=== PATIENT | male | born 1990 | race Caucasian/White ===

== ENCOUNTER 2022-11-04 13:16 | Emergency (ER) | payer MEDICAID, SELFPAY ==
[2022-11-04 13:21] VITALS: BP 118/77; PULSE 84; RESP 17; O2SAT 98
--- NOTE | 2022-11-04 13:31 | NUR.NOTE ---
Addendum entered by Deborah Godoy RN 11/04/22 13:38: AxOx4, walked from wheelchair to stretcher. continues to not allow assessment or vitals taken. Original Note: Nursing Note: pt states you are not going to get any cooperation out of me pt will not answer any questions, pt will not allow monitor to be placed on him.
--- NOTE | 2022-11-04 13:45 | ED.GENADUL_ITS ---
Discharge Plan Disposition Patient Disposition: Home Condition: Stable Discharge Details Clinical Impression: Opiate abuse, episodic Primary Care Provider: Shakira Gunderson ED Provider: Kellie Parekh Home Meds and New Rx's Prescriptions: Continued buprenorphine-naloxone [Suboxone] 1 EACH film 8 mg Sublingual DAILY Discharge Instructions Additional Instructions: You are declining any treatment at this time and are alert and oriented You may have rebound of symptoms and may need additional doses of Narcan, at this time you are medically cleared for incarceration Discharge Data Discharge Date/Time-TO BE ENTERED AT DEPARTURE: 11/04/22 16:32 Medical Decision Making Patient is alert and oriented with stable vital signs, he gives me the finger when I walk in the room and asked what brings him in and tells me to [id number] off When asked what brings him to the emergency department he tells me that he does not want to talk to me . Correctional facility guards state that he has been alert and oriented and was able to answer all basic questions in the triage box After 2 mg of Narcan, patient is alert, argumentative, and disinterested in speaking to this facility His vitals are stable he is maintaining airway, and he is ambulatory with steady gait, he is refusing additional evaluation at this time and stable for discharge back to the correctional facility, they are made aware that he may have rebound, they do have a health center at the facility and feel comfortable caring for this patient I suspect his alteration in mental status was secondary to opiate induced delirium secondary axonal overdose He will be discharged to the correctional facility in the care of correctional guards HPI General Date/Time Provider Initiated Documentation: 11/04/22 13:45 . HPI Narrative: This 32-year-old male presents after being arrested on a warrant and is running into the bathroom to take fentanyl and cocaine. He was found to be nodding off at the correctional facility when he was sent here for evaluation. He was evaluated in triage and nursing gave him Narcan secondary to likely opiate accidental overdose and reported complete resolution of symptoms. Patient is refusing to speak to me and unable to obtain history from the patient. Correctional facility guards are giving history. Related Data Home Medications Medication Instructions Recorded Confirmed buprenorphine 8 mg-naloxone 2 mg 8 mg sublingual DAILY 05/19/14 11/04/22 sublingual film (Suboxone) Allergies Allergy/AdvReac Type Severity Reaction Status Date / Time codeine Allergy Unverified 11/04/22 13:28 General Stated Complaint: GenMedical UDAY: 4 PFSH All Active Problems (Updated 11/04/22 @ 13:48 by PERLITA Coleman) Opiate abuse, episodic (Acute) Social History Smoking/Tobacco Use Status: Never Smoking risk assessment performed?: Yes Details: pt will not answer questions, see nursing note Course Vital Signs Vital signs: Vital Signs Pulse 84 11/04/22 13:21 Respiratory Rate 17 11/04/22 13:21 Blood Pressure 118/77 11/04/22 13:21 Pulse Oximetry 98 11/04/22 13:21 Pulse 84 11/04/22 13:21 Respiratory Rate 17 11/04/22 13:21 Respiratory Effort Normal, Non-Labored 11/04/22 13:33 Blood Pressure 118/77 11/04/22 13:21 Pulse Oximetry 98 11/04/22 13:21 Oxygen Delivery Method Room Air 11/04/22 13:21 Oxygen Flow Rate 0 11/04/22 13:21 Pain Level 0 11/04/22 13:21
--- NOTE | 2022-11-04 13:52 | NUR.NOTE ---
Nursing Note: Pt refused to sign discharge paperwork. Discharged from ER at 1350 in custody of correctional officers.
== END 2022-11-04 16:32 | disposition home or self-care (01) ==
PROVIDERS: Emergency Provider Physician Assistant
DX: F11.10 Opioid abuse, uncomplicated (principal)
CPT/HCPCS: 99283; 99284; J2310

== ENCOUNTER 2024-10-13 13:51 | Inpatient (IN) | payer MEDICAID, SELFPAY ==
[2024-10-13 13:54] VITALS: BP 142/89; PULSE 108; RESP 20; TEMP 37; O2SAT 94
[2024-10-13 13:56] VITALS: BP 142/89; PULSE 108; RESP 20; TEMP 37; O2SAT 94
--- NOTE | 2024-10-13 14:21 | W.ED.GENAD ---
Discharge Plan Disposition Patient Disposition: Admit to [facility] Condition: Stable Discharge Details Chief Complaint: Cellulitis Clinical Impression: Cellulitis of left groin Admit Date/Time: 10/13/24 17:48 Admit Provider: Tay Stanton Attending Provider: Tay Stanton Primary Care Provider: Alec Truong ED Provider: Thomas Díaz [facility] General Mode of arrival: ambulatory. Date/Time Provider Initiated Documentation: 10/13/24 13:52. Limitations to Documentation: no limitations. Information obtained by: patient. History of Present Illness 34 year old M presents to the emergency department with the chief complaint of left groin redness and drainage, described as moderate, Quality is described as aching, Patient started experiencing this day(s) (2) and it has been constant. No relieving factors improve symptom(s), No exacerbating factors reported . Patient notes no other symptoms.. Patient did receive the following treatments prior to arrival, none Related Data Home Medications ?Medication ?Instructions ?Recorded ?Confirmed methadone 10 mg tablet 150 mg PO DAILY 10/13/24 10/13/24 mirtazapine 15 mg tablet 15 mg PO QHS 10/13/24 10/13/24 Allergies Allergy/AdvReac Type Severity Reaction Status Date / Time codeine Allergy Unverified 11/04/22 13:28 General Stated Complaint: Cellulitis UDAY: 3 Review of Systems All systems reviewed & are unremarkable except as noted in HPI and below Constitutional Constitutional: Denies chills, Denies fever(s) and Denies weakness Eyes Eyes: Denies loss of vision ENT Ears, Nose, Mouth, and Throat: Denies change in voice Cardiovascular Cardiovascular: Denies chest pain and Denies dyspnea Respiratory Respiratory: Denies cough and Denies dyspnea Gastrointestinal Gastrointestinal: Denies abdominal pain, Denies nausea and Denies vomiting Integumentary/Breasts Skin/Breast: Reports rash Neurologic Neurologic: Denies loss of vision and Denies weakness Exam Const General: no acute distress Orientation: alert HENND Head: normal to inspection Ears: external ears normal General nose exam: external nose normal Mouth: moist mucous membranes Eyes General: appearance normal, both eyes and all related structures Neck Neck: normal visual inspection Resp Effort & Inspection: normal respiratory effort and able to speak in complete sentences Cardio Rate: regular rate GI Palpation: soft and not rigid Skin General skin exam: no rashes or lesions noted Neuro General: patient alert and patient oriented x3 Extrem General: normal to inspection Psych Mental Status: mental status grossly normal Course Vital Signs Vital signs: Vital Signs Temperature 37.0 C 10/13/24 13:54 Pulse 108 H 10/13/24 13:54 Respiratory Rate 20 10/13/24 13:54 Blood Pressure 142/89 H 10/13/24 13:54 Pulse Oximetry 94 10/13/24 13:54 Temperature 37.0 C 10/13/24 13:56 Pulse 108 H 10/13/24 13:56 Respiratory Rate 20 10/13/24 13:56 Blood Pressure 142/89 H 10/13/24 13:56 Pulse Oximetry 94 10/13/24 13:56 Lab/Test Results Lab/Test Results: 10/13/24 14:18 Blood Blood Culture - Pending 10/13/24 14:18 Blood Blood Culture - Pending Medical Decision Making 34-year-old male comes in with several days of worsening redness and swelling in the left groin region. He says that he had drainage of this area as well. He denies any fevers or systemic symptoms. He is stable on arrival. He has erythema in the left groin and fluctuance in the mid left groin with some purulent material mildly draining. His abdomen otherwise has no tenderness, he has no tenderness in the scrotum or meatus. I suspect cellulitis and abscess, will proceed with CBC, CMP, inflammatory markers, lactate and procalcitonin and also obtain a CT abdomen pelvis to evaluat for abscess Patient with a white count of 15, CT shows no visible abscess but does have extensive cellulitis. Given the extent of cellulitis will discuss with hospitalist about admission. Vancomycin ordered. Quality:SDOH Health Related Social Needs: No Data to Display [facility] All Active Problems (Updated 10/13/24 @ 18:56 by Thomas Díaz MD) DVT prophylaxis (Acute) Anemia (Chronic) Cellulitis of left groin (Acute) Sepsis (Acute) Medical History (Updated 10/13/24 @ 18:56 by Thomas Díaz MD) Obesity, Class III, BMI 40-49.9 (morbid obesity) IVDU (intravenous drug user) in remission Opioid dependence Surgical History (Updated 10/13/24 @ 17:56 by Tay Stanton) S/P appendectomy Family History (Updated 10/13/24 @ 17:57 by Tay Stanton) Other Heart disease Substance use disorder Social History (Updated 10/13/24 @ 17:57 by Tay Stanton) Smoking/Tobacco Use Status: Former Tobacco Use Smoking risk assessment performed?: Yes Alcohol Intake: former Substance use type: former substance user, heroin, opiates and IV drugs Housing: other Additional Social history: From [facility], incarcerated since 2022 No IVDU since 2014
[2024-10-13 15:05] LABS: Lactate 0.8 mmol/L (<or=2.0)
[2024-10-13 15:13] LABS: Abs Immature Grans 0.06 10^3/uL (0.0-0.06); Absolute Lymphocyte Count 1.46 10^3/uL (1.2-3.4); Absolute Monocyte Count 1.46 10^3/uL (0.1-0.8); Basophils % 0.3 %; Eosinophils % 1.4 %; HCT 34.2 % (40.0-50.0); HGB 11.1 g/dL (13.5-17.5); Immature Grans % 0.4 %; Lymphocytes % 9.5 %; MCH 26.7 pg (27.0-33.0); MCHC 32.5 % (32.0-36.0); MCV 82 fL (80-95); Monocytes % 9.5 %; Neutrophils % 78.9 %; RBC 4.16 10^6/uL (4.36-5.78); RDW-SD 39.2 fL; WBC 15.34 10^3/uL (4.4-10.8)
[2024-10-13 15:15] LABS: Bilirubin Negative (Negative); Blood Negative (Negative); Clarity Clear (Clear); Glucose Negative (Negative); Ketones Negative (Negative); Leukocyte Esterase Negative (Negative); Nitrite Negative (Negative); Urobilinogen 0.2 mg/dL (Up to 0.2)
[2024-10-13 15:16] LABS: Absolute Basophil Count 0.05 10^3/uL (0.0-0.2); Absolute Eosinophil Count 0.21 10^3/uL (0.0-0.7)
[2024-10-13 15:25] LABS: ALT 19 U/L (16-63); AST 20 U/L (15-37); Albumin 3.2 g/dL (3.4-5.0); Alkaline Phosphatase 110 U/L (46-116); Anion Gap 6.4 mmol/L (3-11); BUN 8 mg/dL (7-18); Bilirubin, Total 0.6 mg/dL (0.2-1.0); C-Reactive Protein 12.19 mg/dL (<or=0.5); CO2 29.6 mmol/L (21.0-32.0); Calcium 9.1 mg/dL (8.5-10.1); Chloride 100 mmol/L (98-107); Estimated GFR 101.92 (mL/min/1.73m2); Glucose 102 mg/dL (74-106); Magnesium 1.8 mg/dL (1.8-2.4); Potassium 4.3 mmol/L (3.5-5.1); Sodium 136 mmol/L (136-145)
--- NOTE | 2024-10-13 15:30 | DI.CT_ITS ---
Exam(s) CT ABDOMEN PELVIS W EXAM: CT ABDOMEN PELVIS W CLINICAL HISTORY: left groin redness, ?abscess. TECHNIQUE: Imaging Protocol: Axial computed tomography images with coronal and sagittal reformatted images were created and reviewed CONTRAST MATERIAL: Intravenous: Omnipaque-350 100cc Oral: None COMPARISON: No exams were available for comparison FINDINGS: VISUALIZED LUNG BASES: No nodules nor pleural effusions evident. ABDOMEN: There is no ascites. LIVER: There are no focal hepatic lesions evident. No dilated intrahepatic ducts. GALLBLADDER/BILIARY: Gallbladder is contracted and difficult to evaluate. There does not appear to b e acute gallbladder pathology. CBD is not dilated. PANCREAS: No evidence of pancreatic mass nor dilatation of the pancreatic duct. SPLEEN: Spleen is not enlarged. No obvious intrasplenic lesions. Splenic and portal veins are paten t. ADRENALS: There are no significant adrenal masses. KIDNEYS:No cysts evident. No solid renal masses. No calculi nor hydronephrosis.. ABDOMINAL AORTA: Abdominal aorta is not enlarged. LYMPH NODES:There is no retroperitoneal nor paraaortic adenopathy. ABDOMINAL WALL: No evidence of significant anterior abdominal wall nor inguinal hernia. GI: There is no evidence of bowel obstruction, free air, nor abscess. PELVIS: GI: Appendix is surgically absent.No evidence of sigmoid diverticulitis. there is abundant abnormal streaking in the subcutaneous fat of the left groin and left hemiscro violeta with slight overlying skin thickening consistent with cellulitis and no discernible fluid collect ion. this streaking extends into the upper medial thigh. there is no gas in the soft tissues eviden t. there few slightly prominent left groin lymph nodes. LYMPH NODES: There is no intrapelvic nor inguinal adenopathy. REPRODUCTIVE: Prostate is small. Seminal vesicles unremarkable. URINARY BLADDER: No calculi nor obvious masses evident OSSEOUS: No fractures and no significant osseous lesions. There are bilateral pars defects at L5 level with mild anterolisthesis of L5 upon S1. IMPRESSION: 1. The main findings are in the left groin region where there is a large area of subcutaneous inflamm atory streaking with overlying skin thickening-probable cellulitis involving the groin and upper medi al left thigh and left hemiscrotum. There is no drainable fluid collection in this region and there is no gas in the soft tissues. 2. Other findings as above Report called to the ER physician by myself 10/13/2024 at 4 p.m. RADIATION DOSE DELIVERED: 1,108.29mGy.cm Total DLP DATA REPOSITORY: All CT scans at this facility are submitted to the National Radiology Data Registry (NRDR) Dose Index Registry (DIR) with the [employer] (A[employer]). RADIATION OPTIMIZATION: All CT scans at this facility use at least one of these dose optimization te chniques: automated exposure control; mA and/or kV adjustment per patient size (includes targeted exa ms where dose is matched to clinical indication); or iterative reconstruction.
[2024-10-13] MEDS: Normal Saline - Diluent 50 ML VIAL IJ (15:31)
[2024-10-13] MEDS: Omnipaque 350 MG/ML 100 ML BTL IJ (15:32)
[2024-10-13 15:44] LABS: Procalcitonin < 0.10 ng/mL
[2024-10-13 15:49] LABS: ESR 58 mm/hr (0-15)
[2024-10-13] MEDS: VANCOMYCIN/WATER (PEG) 2 GM/400 ML BAG IVPB (16:38)
--- NOTE | 2024-10-13 17:54 | HPE_ITS ---
Date of service: 10/13/24 Time of Service: 17:54 Assessment and Plan Assessment and plan (1) Sepsis: Status: Acute Assessment and plan: Meets criteria with elevated HR and WBC in setting of acute infection He hasn't gotten fluids, start with liter bolus On vancomycin for purlulent cellulitis with blood cx pending. (2) Cellulitis of left groin: Status: Acute Assessment and plan: Vancmycin as above. Given sepsis and severity of infeciton admission for IV abx indicated. CT does not reveal abscess to drain, continue to monitor for development. Consult surgery prn Draining some from small pocket, culture this fluid. (3) Opioid dependence: Assessment and plan: States he is on methadone, med rec says buprenorphine. We need to clarify this. (4) Anemia: Status: Chronic Assessment and plan: In setting of acute infection. Mild. Monitor. (5) DVT prophylaxis: Status: Acute Assessment and plan: enoxaparin. high dose given BMI >40. History of Present Illness History of Present Illness Chief Complaint: groin infection Narrative: 34 yo M with opioid use disorder, remote h/o IVDU, [facility] days of progressive pain, redness, and swelling in left groin. Started 3 days ago with a little pimple. Has grown and now skin is hard and tender above penis, swelling into penis makes it a little difficult and uncomfortable to urinate. Today, he started feeling chills and malaise. Has not started on antibiotics. He was treated for infected tooth with amox/clav and metronidazole finishing a week ago, had tooth pulled. His mouth is no longer bothering him. In the ED he had CT that did not show abscess. He was started on vancomycin. He is hungry now. No nausea or vomiting. no penile discharge. Review of Systems All systems reviewed & are unremarkable except as noted in HPI and below PFSH All Active Problems DVT prophylaxis (Acute) Anemia (Chronic) Cellulitis of left groin (Acute) Sepsis (Acute) Medical History Obesity, Class III, BMI 40-49.9 (morbid obesity) IVDU (intravenous drug user) in remission Opioid dependence Surgical History S/P appendectomy Family History Other Heart disease Substance use disorder Social History Smoking/Tobacco Use Status: Former Tobacco Use Smoking risk assessment performed?: Yes Alcohol Intake: former Substance use type: former substance user, heroin, opiates and IV drugs Housing: other Additional Social history: From [facility], incarcerated since 2022 No IVDU since 2014 Meds Allergies and Home Medications Allergies Allergy/AdvReac Type Severity Reaction Status Date / Time codeine Allergy Unverified 11/04/22 13:28 Home Medications ?Medication ?Instructions ?Recorded ?Confirmed ?Type methadone 10 mg tablet 150 mg PO DAILY 10/13/24 10/13/24 History mirtazapine 15 mg tablet 15 mg PO QHS 10/13/24 10/13/24 History Exam Narrative Exam Narrative: GEN: Alert and oriented x 4, pleasant and cooperative, gives linear history. Obese. No acute distress at rest. HEENT: Head atraumatic. Conjunctiva clear, no icterus. PEERL, EOMI. no rhinorrhea. MMM, OP benign with no swelling. Neck is supple with no masses or lymphadenopathy, trachea midline LUNGS: CTAB with normal effort CV: RRR with no murmurs, gallops, or rubs. ABD: active bowel sounds, soft, nontender and nondistended. No masses. : Left groin redness into upper thight and scrotum to inguinal fold. Mons pubis indurated and tender with small amount of drainage form area of head with pressure. Edema noted into the left scrotum and foreskin. Penis otherwise appears normal with no discharge. EXT: no cyanosis, clubbing. 1+ fay ankle edema, not tender. MSK: No joint redness or swelling. No CVAT NEURO: CN 2-12 grossly intact. Normal movement of 4 extremities. Normal speech and coordination. No tremor SKIN: No rashes or open wounds other than per . PSYCH: normal mood and affect, nl thought process Results Imaging CT scan - pelvis: report reviewed Imaging Studies: CT A/P: 1. The main findings are in the left groin region where there is a large area of subcutaneous inflammatory streaking with overlying skin thickening-probable cellulitis involving the groin and upper medial left thigh and left hemiscrotum. There is no drainable fluid collection in this region and there is no gas in the soft tissues. Labs 10/13/24 14:50 10/13/24 14:50 Labs: Laboratory Results - last 24 hr 10/13/24 10/13/24 10/13/24 14:50 15:07 15:43 WBC 15.34 H RBC 4.16 L Hgb 11.1 L Hct 34.2 L MCV 82 MCH 26.7 L MCHC 32.5 RDW 13.0 Plt Count MPV Immature Gran % 0.4 Neutrophils % 78.9 Lymphocytes % 9.5 Monocytes % 9.5 Eosinophils % 1.4 Basophils % 0.3 Nucleated RBC % 0.0 Absolute Neutrophils 12.10 H Absolute Lymphocytes 1.46 Absolute Monocytes 1.46 H Absolute Eosinophils 0.21 Absolute Basophils 0.05 ESR Cancelled 58 H VBG Lactate 0.8 Sodium 136 Potassium 4.3 Chloride 100 Carbon Dioxide 29.6 Anion Gap 6.4 BUN 8 Creatinine 1.0 Est GFR (CKD-EPI 2020) 101.92 Glucose 102 Calcium 9.1 Magnesium 1.8 Total Bilirubin 0.6 AST 20 ALT 19 Alkaline Phosphatase 110 C-Reactive Protein 12.19 H Total Protein 8.0 Albumin 3.2 L Procalcitonin < 0.10 Urine Color Yellow Urine Clarity Clear Urine pH 7.0 Ur Specific [place] 1.010 Urine Protein Negative Urine Ketones Negative Urine Blood Negative Urine Nitrite Negative Urine Bilirubin Negative Urine Urobilinogen 0.2 Ur Leukocyte Esterase Negative Urine Glucose Negative Last Vital Signs Temp 37.0 C 10/13/24 13:56 Pulse 108 H 10/13/24 13:56 Resp 20 10/13/24 13:56 BP 142/89 H 10/13/24 13:56 Pulse Ox 94 10/13/24 13:56 Time Spent Time spent with Patient: 55-74 minutes Time was spent: preparing to see the patient(eg.review tests), obtaining and/or reviewing separately otained hiistory, ordering medications,tests, procedures, referring, communicating with other health out of school hours care worker, indepentently interpreting results, counseling the patient and care coordination
--- NOTE | 2024-10-13 17:59 | W.PC.ACHO ---
Registration Status: Primary Language: Preferred Language: ED Information & Data Chief Complaint Cellulitis 10/13/24 14:24 Triage Note Patient complaining of 10/13/24 13:54 redness, swollen penis and testicles for 3 days Medical / Surgical History (Last Updated 10/13/24 @ 17:55 by Tay Stanton) Obesity, Class III, BMI 40-49.9 (morbid obesity) IVDU (intravenous drug user) Opioid dependence (Last Updated 10/13/24 @ 17:56 by Tay Stanton) S/P appendectomy Most Recent Vital Signs Temperature 37.0 C 10/13/24 13:56 Pulse 108 H 10/13/24 13:56 Respiratory Rate 20 10/13/24 13:56 Blood Pressure 142/89 H 10/13/24 13:56 Pulse Oximetry 94 10/13/24 13:56 Allergies codeine Allergy (Unverified 11/04/22 13:28) Active Medications Generic Name Dose Route Start Last Admin Trade Name Freq PRN Reason Stop Dose Admin Vancomycin/PEG/NADA/Lysine/Water 2 gm in 400 mls @ 200 mls/hr 10/13/24 16:15 10/13/24 16:38 Vancocin Injection IVPB 10/13/24 18:14 200 mls/hr NOW ONE Administration Iohexol 100 ml 10/13/24 15:45 10/13/24 15:32 Omnipaque 350 Mg/Ml 100 Ml Btl IJ 11/12/24 23:59 100 ml DIRECTED HELGA Administration Sodium Chloride 50 ml 10/13/24 15:45 10/13/24 15:31 Normal Saline - Diluent 50 Ml Vial IJ 50 ml .FOR DI USE HELGA Administration IV IV Catheter Type [Right Saline Lock Antecubital] IV Catheter Gauge [Right 18 Antecubital] Diet Orders Category Date Time Status Regular/Normal [DIET] Nutrition 10/13/24 Dinner Active Diagnostics 10/13/24 10/13/24 10/13/24 Range/Units 15:43 15:07 14:50 WBC 15.34 H (4.4-10.8) 10^3/uL RBC 4.16 L (4.36-5.78) 10^6/uL Hgb 11.1 L (13.5-17.5) g/dL Hct 34.2 L (40.0-50.0) % MCV 82 (80-95) fL MCH 26.7 L (27.0-33.0) pg MCHC 32.5 (32.0-36.0) % RDW 13.0 (11.8-14.1) % Plt Count (130-400) 10^3/uL MPV (8.0-11.0) fL Immature Gran % 0.4 % Neutrophils % 78.9 % Lymphocytes % 9.5 % Monocytes % 9.5 % Eosinophils % 1.4 % Basophils % 0.3 % Nucleated RBC % 0.0 (0.0-0.3) % Absolute Neutrophils 12.10 H (1.2-6.7) 10^3/uL Absolute Lymphocytes 1.46 (1.2-3.4) 10^3/uL Absolute Monocytes 1.46 H (0.1-0.8) 10^3/uL Absolute Eosinophils 0.21 (0.0-0.7) 10^3/uL Absolute Basophils 0.05 (0.0-0.2) 10^3/uL ESR 58 H Cancelled VBG Lactate 0.8 (<or=2.0) mmol/L Sodium 136 (136-145) mmol/L Potassium 4.3 (3.5-5.1) mmol/L Chloride 100 (98-107) mmol/L Carbon Dioxide 29.6 (21.0-32.0) mmol/L Anion Gap 6.4 (3-11) mmol/L BUN 8 (7-18) mg/dL Creatinine 1.0 (0.70-1.30) mg/dL Est GFR (CKD-EPI 2020) 101.92 (mL/min/1.73m2) Glucose 102 (74-106) mg/dL Calcium 9.1 (8.5-10.1) mg/dL Magnesium 1.8 (1.8-2.4) mg/dL Total Bilirubin 0.6 (0.2-1.0) mg/dL AST 20 (15-37) U/L ALT 19 (16-63) U/L Alkaline Phosphatase 110 (46-116) U/L C-Reactive Protein 12.19 H (<or=0.5) mg/dL Total Protein 8.0 (6.4-8.2) g/dL Albumin 3.2 L (3.4-5.0) g/dL Procalcitonin < 0.10 ng/mL Urine Color Yellow (Yellow) Urine Clarity Clear (Clear) Urine pH 7.0 (5-8) Ur Specific [place] 1.010 (1.005-1.025) Urine Protein Negative (Neg-Trace) mg/dL Urine Ketones Negative (Negative) mg/dL Urine Blood Negative (Negative) Urine Nitrite Negative (Negative) Urine Bilirubin Negative (Negative) Urine Urobilinogen 0.2 (Up to 0.2) mg/dL Ur Leukocyte Esterase Negative (Negative) Urine Glucose Negative (Negative) mg/dL 10/13/24 16:15 Blood Culture - Pending Blood 10/13/24 14:50 Blood Culture - Pending Blood Intake and Output - 24 Hour Total 10/13/24 13:51 thru 10/13/24 13:54 Weight 136.078 kg v v v v v v v v v Sending and/or Receiving Nurses: Please use comment section below to note any information pertinent to the patient hand-off not included above. Information / Comments: Report received from:deb
[2024-10-13 18:01] VITALS: BP 142/89; PULSE 108; RESP 20; TEMP 37; O2SAT 94
[2024-10-13 18:14] VITALS: BP 119/76; PULSE 80; RESP 15; TEMP 36.9; O2SAT 98
[2024-10-13 18:22] VITALS: BP 119/76; PULSE 80; RESP 15; TEMP 36.9; O2SAT 98
[2024-10-13] MEDS: Lactated Ringers 1,000 ML 1000 ML IV (18:38)
--- NOTE | 2024-10-13 18:54 | TELEP.MEDR_ITS ---
Date of service: 10/13/24 Time of Service: 18:54 Telepharmacy Home Med Rec Allergies Allergies: codeine Allergy (Unverified 11/04/22 13:28) Interview Person Interviewed: * Patient Quality Quality of Interview/Accuracy of Medication List: Good Sources Sources used to compile medication list: [employer] Medication List and Other Changes made to Home Medication List: ADDITIONS: * Methadone 150mg po daily (dose verified with [facility] [phone] last dose at clinic on 10/13/24) * Remeron 15mg po hs DELETIONS: * Suboxone CHANGES: * None Additional Notes Additional Notes: * Updated medication list with information from patient. Recommended Changes Recommended Changes(reason for recommendation): * None` Attestation: The home medication list is now updated to the best of my knowledge and is ready to be reconciled by the provider. Please contact [facility] Pharmacist at for any questions.
--- NOTE | 2024-10-13 18:54 | TELEP.MEDREC ---
Date of service: 10/13/24 Time of Service: 18:54 Telepharmacy Home Med Rec Allergies Allergies: codeine Allergy (Unverified 11/04/22 13:28) Interview Person Interviewed: Patient Quality Quality of Interview/Accuracy of Medication List: Good Sources Sources used to compile medication list: [employer] Medication List and Other Changes made to Home Medication List: ADDITIONS: Methadone 150mg po daily (dose verified with [facility] [phone] last dose at clinic on 10/13/24) Remeron 15mg po hs DELETIONS: Suboxone CHANGES: None Additional Notes Additional Notes: Updated medication list with information from patient. Recommended Changes Recommended Changes(reason for recommendation): None` Attestation: The home medication list is now updated to the best of my knowledge and is ready to be reconciled by the provider. Please contact the TelePharmacy Medication Reconciliation Pharmacist at for any questions.
[2024-10-13] MEDS: Enoxaparin 40 MG/0.4 ML SYR SC (19:49)
[2024-10-13] MEDS: Normal Saline Flush 10 ML SYR IVP (19:50)
[2024-10-13] MEDS: Acetaminophen 325 MG TAB PO (21:25)
[2024-10-13] MEDS: Mirtazapine 15 MG TAB PO (23:04)
[2024-10-14] MEDS: VANCOMYCIN 1,250 MG in Normal Saline 250 ML 166.6666 MG IVPB (00:27)
[2024-10-14] MEDS: Normal Saline Flush 10 ML SYR IVP ×4 (00:27→23:46)
[2024-10-14 07:32] VITALS: BP 129/74; PULSE 81; RESP 16; TEMP 37.3; O2SAT 93
[2024-10-14] MEDS: Methadone 10 MG TAB 150 MG PO (09:04)
[2024-10-14] MEDS: VANCOMYCIN/WATER (PEG) 1.25 GM/250 ML BAG IVPB ×3 (09:06→23:45)
--- NOTE | 2024-10-14 09:29 | INITIAL_ITS ---
Date of service: 10/14/24 Time of Service: 16:19 Care Management Initial Assmt Initial Assessment Reason for Hospitalization: Cellulitis Functional Status/Living Situation Patient Presentation: Rudy was in his room, visiting with his family. He presented to the ED with the chief complaint of left groin redness and drainage. Per report, he comes from [facility], he present without a CO in the room. Per RN, he is on medical furlough and has an ankle monitoring device on ([facility] CM contact the [facility] facility to discuss discharge planning in detail. Per Charissa at [facility], he should be discharged into the community and should return to [facility], at his leisure. CM will continue to follow. [place] of Res[place] [facility] Resides with: Other ([facility] ) Significant Other/Family: Local Natural Supports: Family Employment Status: Other (Incarcerated ) Instrumental Activities of Daily Living (ADLs): Independent Medications Medication Management: No Issues/Barriers identified Advance Directives Advance Directives: Do you have an Advance Directive: N 12/08/13 12:17 AD [facility] at [facility]: N 12/08/13 12:17 Date Asked 10/13/24 10/13/24 15:27 AD Date Reviewed COLST On File at [facility] COLST Date Scanned Code Status Resuscitation Status Full Code Portal Pt does not currently have a portal and education provided: No Insurance Coverage/Financial Issues Insurance: [facility] Care Team Visit Care Team Role Provider Type Onesimo Ramirez MD MD [facility] STAFF PHYSICIAN Alec Truong MD Primary Care Provider [facility] STAFF PHYSICIAN Thomas Díaz MD Emergency Provider [facility] STAFF PHYSICIAN Tay Stanton Admit Provider [facility] STAFF PHYSICIAN Attending Provider Discharge Potential Discharge Needs: PCP F/U Appt Anticipated Barriers to Discharge: Medical Status Patient/Family Education Needs: Review discharge instructions, discuss Ask Me Three Transportation: Other (Private vehicle vs RCT ) Plan: Anticipate Rudy will be discharged to the community. Patient will follow up with corrections, per patient and corrections agreement. Once returned to the correctional facility, he will follow up with facility providers and continue per his discharge plan of care. He will transport via RCT vs. private vehicle. CM will continue to follow. Social Determinants of Health Screening Will the Patient Participate in the Screening?: Unable to obtain Comments: pt from [facility] All Active Problems DVT prophylaxis (Acute) Anemia (Chronic) Cellulitis of left groin (Acute) Sepsis (Acute) Medical History Obesity, Class III, BMI 40-49.9 (morbid obesity) IVDU (intravenous drug user) in remission Opioid dependence Surgical History S/P appendectomy Family History Other Heart disease Substance use disorder Social History Smoking/Tobacco Use Status: Former Tobacco Use Smoking risk assessment performed?: Yes Alcohol Intake: former Substance use type: former substance user, heroin, opiates and IV drugs Housing: other Additional Social history: From [facility], incarcerated since 2022 No IVDU since 2014 Readmission Within the Past 30 Days Yes or No: No
--- NOTE | 2024-10-14 13:49 | PGE_ITS ---
Date of Service Date of service: 10/14/24 Time of Service: 13:49 Assessment and Plan Assessment and plan (1) Sepsis: Status: Acute Assessment and plan: Meets criteria with elevated HR and WBC in setting of acute infection He hasn't gotten fluids, start with liter bolus On vancomycin for purlulent cellulitis with blood cx pending. 10/14/24 labs pending from this am. Called lab and apparently labs weren't drawn 2/2 body habitus (2) Cellulitis of left groin: Status: Acute Assessment and plan: Vancmycin as above. Given sepsis and severity of infeciton admission for IV abx indicated. CT does not reveal abscess to drain, continue to monitor for development. Cons ult surgery prn Draining some from small pocket, culture this fluid. 10/14/24 Cultures pending, no labs drawn yet. CW vanc. Consider GS consult on Wednesday if there isn't significant improvement (3) Opioid dependence: Assessment and plan: States he is on methadone, med rec says buprenorphine. We need to clarify this. (4) Anemia: Status: Chronic Assessment and plan: In setting of acute infection. Mild. Monitor. (5) DVT prophylaxis: Status: Acute Assessment and plan: enoxaparin. high dose given BMI >40. Subjective Subjective Interval history since last seen: Pt seen and examined in his room this am. Pt states that the infected area does not feel as hard and has decreased in size to some degree. Exam Narrative Exam Narrative: GEN: Alert and oriented x 4, pleasant and cooperative, gives linear history. Obese. No acute distress at rest. HEENT: Head atraumatic. Conjunctiva clear, no icterus. PEERL, EOMI. no rhinorrhea. MMM, OP benign with no swelling. Neck is supple with no masses or lymphadenopathy, trachea midline LUNGS: CTAB with normal effort CV: RRR with no murmurs, gallops, or rubs. ABD: active bowel sounds, soft, nontender and nondistended. No masses. : Left groin redness into upper thight and scrotum to inguinal fold. Mons pubis indurated and tender with small amount of drainage form area of head with pressure. Edema noted into the left scrotum and foreskin. Penis otherwise appears normal with no discharge. EXT: no cyanosis, clubbing. 1+ fay ankle edema, not tender. MSK: No joint redness or swelling. No CVAT NEURO: CN 2-12 grossly intact. Normal movement of 4 extremities. Normal speech and coordination. No tremor SKIN: No rashes or open wounds other than per . PSYCH: normal mood and affect, nl thought process Objective Last Vital Signs Temp 37.3 C 10/14/24 07:32 Pulse 81 10/14/24 07:32 Resp 16 10/14/24 07:32 BP 129/74 10/14/24 07:32 Pulse Ox 93 10/14/24 07:32 Laboratory Results - last 24 hr 10/13/24 10/13/24 10/13/24 14:50 15:07 15:43 WBC 15.34 H RBC 4.16 L Hgb 11.1 L Hct 34.2 L MCV 82 MCH 26.7 L MCHC 32.5 RDW 13.0 Plt Count MPV Immature Gran % 0.4 Neutrophils % 78.9 Lymphocytes % 9.5 Monocytes % 9.5 Eosinophils % 1.4 Basophils % 0.3 Nucleated RBC % 0.0 Absolute Neutrophils 12.10 H Absolute Lymphocytes 1.46 Absolute Monocytes 1.46 H Absolute Eosinophils 0.21 Absolute Basophils 0.05 ESR Cancelled 58 H VBG Lactate 0.8 Sodium 136 Potassium 4.3 Chloride 100 Carbon Dioxide 29.6 Anion Gap 6.4 BUN 8 Creatinine 1.0 Est GFR (CKD-EPI 2020) 101.92 Glucose 102 Calcium 9.1 Magnesium 1.8 Total Bilirubin 0.6 AST 20 ALT 19 Alkaline Phosphatase 110 C-Reactive Protein 12.19 H Total Protein 8.0 Albumin 3.2 L Procalcitonin < 0.10 Urine Color Yellow Urine Clarity Clear Urine pH 7.0 Ur Specific [place] 1.010 Urine Protein Negative Urine Ketones Negative Urine Blood Negative Urine Nitrite Negative Urine Bilirubin Negative Urine Urobilinogen 0.2 Ur Leukocyte Esterase Negative Urine Glucose Negative PAWSS Have you Been Recently Intoxicated or Drunk Within the Last 30 days?: No Have you Ever Experienced Previous Episodes of Alcohol Withdrawal?: No Have you ever Experienced Withdrawal Seizures?: No Have you ever Experienced Delirium Tremens(DT)s?: No Have you ever undergone Alcohol Rehabilitation Treatment (i.e, inpt ot outpatient treatment programs)?: No Have you ever Experienced Blackouts?: No Have you ever Combined Alcohol with other Downers within the last 90 days?: No Have you ever Combined Alcohol with any other Substance of Abuse during the last 90 days?: No Positive Blood Alcohol level on Presentation? [PCS.BAL]: No Evidence of Increased Autonomic Activity (i.e. HR>120, tremor, sweating, agitation, nausea)?: No Result: 0 Time Spent with Patient Time Spent with Patient: 25-34 minutes Time was spent: preparing to see the patient(eg.review tests), obtaining and/or reviewing separately otained hiistory, ordering medications,tests, procedures, referring, communicating with other health field care coordinator, indepentently interpreting results, counseling the patient and care coordination
[2024-10-14 14:16] LABS: Abs Immature Grans 0.03 10^3/uL (0.0-0.06); Absolute Basophil Count 0.05 10^3/uL (0.0-0.2); Absolute Eosinophil Count 0.51 10^3/uL (0.0-0.7); Absolute Lymphocyte Count 1.87 10^3/uL (1.2-3.4); Absolute Monocyte Count 1.13 10^3/uL (0.1-0.8); Absolute Neutrophil Count 6.44 10^3/uL (1.2-6.7); Basophils % 0.5 %; Eosinophils % 5.1 %; HCT 35.5 % (40.0-50.0); HGB 11.5 g/dL (13.5-17.5); Immature Grans % 0.3 %; Lymphocytes % 18.6 %; MCH 26.9 pg (27.0-33.0); MCHC 32.4 % (32.0-36.0); MCV 83 fL (80-95); MPV 8.9 fL (8.0-11.0); Monocytes % 11.3 %; Neutrophils % 64.2 %; Platelet Count 278 10^3/uL (130-400); RBC 4.27 10^6/uL (4.36-5.78); RDW 13.2 % (11.8-14.1); RDW-SD 39.8 fL; WBC 10.03 10^3/uL (4.4-10.8)
[2024-10-14 14:26] LABS: Anion Gap 6.4 mmol/L (3-11); BUN 6 mg/dL (7-18); CO2 27.6 mmol/L (21.0-32.0); CREATININE 0.7 mg/dL (0.70-1.30); Calcium 9.2 mg/dL (8.5-10.1); Chloride 102 mmol/L (98-107); Estimated GFR 124.77 (mL/min/1.73m2); Glucose 116 mg/dL (74-106); Sodium 136 mmol/L (136-145)
[2024-10-14 15:17] LABS: Vancomycin, Random 14.9 ug/mL
[2024-10-14] MEDS: Enoxaparin 40 MG/0.4 ML SYR SC (19:41)
[2024-10-14] MEDS: Mirtazapine 15 MG TAB PO (19:41)
[2024-10-14 19:54] VITALS: BP 126/79; PULSE 77; RESP 18; TEMP 36.3; O2SAT 96
[2024-10-15 07:50] LABS: HGB 10.9 g/dL (13.5-17.5); MCH 26.8 pg (27.0-33.0); MCHC 32.1 % (32.0-36.0); MCV 84 fL (80-95); MPV 8.9 fL (8.0-11.0); Platelet Count 301 10^3/uL (130-400); RBC 4.07 10^6/uL (4.36-5.78); RDW 13.1 % (11.8-14.1); RDW-SD 40.2 fL; WBC 7.26 10^3/uL (4.4-10.8)
[2024-10-15 08:05] LABS: ALT 19 U/L (16-63); AST 21 U/L (15-37); Albumin 2.9 g/dL (3.4-5.0); Alkaline Phosphatase 103 U/L (46-116); Anion Gap 7.5 mmol/L (3-11); BUN 6 mg/dL (7-18); Bilirubin, Total 0.3 mg/dL (0.2-1.0); CO2 27.5 mmol/L (21.0-32.0); CREATININE 0.6 mg/dL (0.70-1.30); Calcium 8.9 mg/dL (8.5-10.1); Chloride 103 mmol/L (98-107); Estimated GFR 130.72 (mL/min/1.73m2); Glucose 111 mg/dL (74-106); Potassium 3.8 mmol/L (3.5-5.1); Sodium 138 mmol/L (136-145); Total Protein 7.6 g/dL (6.4-8.2)
[2024-10-15 08:07] LABS: Vancomycin, Trough 15.5 ug/mL (10.0-20.0)
[2024-10-15] MEDS: VANCOMYCIN/WATER (PEG) 1.25 GM/250 ML BAG IVPB ×2 (08:17→16:48)
[2024-10-15] MEDS: Methadone Liquid 10 MG/ML 150 MG PO (08:17)
[2024-10-15] MEDS: Normal Saline Flush 10 ML SYR IVP ×3 (08:17→20:28)
[2024-10-15 08:23] VITALS: BP 112/77; PULSE 77; RESP 18; TEMP 36.4; O2SAT 97
[2024-10-15] MEDS: Polyethylene Glycol 3350 17 GM PACKET PO (10:07)
--- NOTE | 2024-10-15 15:59 | PGE_ITS ---
Date of Service Date of service: 10/15/24 Time of Service: 15:59 Assessment and Plan Assessment and plan (1) Sepsis: Status: Acute Assessment and plan: Meets criteria with elevated HR and WBC in setting of acute infection He hasn't gotten fluids, start with liter bolus On vancomycin for purlulent cellulitis with blood cx pending. 10/14/24 labs pending from this am. Called lab and apparently labs weren't drawn 2/ body habitus 10/15/24 resolved (2) Cellulitis of left groin: Status: Acute Assessment and plan: Vancmycin as above. Given sepsis and severity of infeciton admission for IV abx indicated. CT does not reveal abscess to drain, continue to monitor for development. Consult surgery prn Draining some from small pocket, culture this fluid. 10/14/24 Cultures pending, no labs drawn yet. CW vanc. Consider GS consult on Wednesday if there isn't significant improvement 10/15/24 cultures show MRSA but awaiting sensitivities. Wound cultures positive but blood cultures remain negative at 24 hours Currently on vancomycin (3) Opioid dependence: Assessment and plan: States he is on methadone, med rec says buprenorphine. We need to clarify this. (4) Anemia: Status: Chronic Assessment and plan: In setting of acute infection. Mild. Monitor. (5) DVT prophylaxis: Status: Acute Assessment and plan: enoxaparin. high dose given BMI >40. Subjective Subjective Interval history since last seen: Pt seen and examined in his room. No new complaints. Exam Narrative Exam Narrative: GEN: Alert and oriented x 4, pleasant and cooperative, gives linear history. Obese. No acute distress at rest. HEENT: Head atraumatic. Conjunctiva clear, no icterus. PEERL, EOMI. no rhinorrhea. MMM, OP benign with no swelling. Neck is supple with no masses or lymphadenopathy, trachea midline LUNGS: CTAB with normal effort CV: RRR with no murmurs, gallops, or rubs. ABD: active bowel sounds, soft, nontender and nondistended. No masses. : Left groin redness into upper thight and scrotum to inguinal fold. Mons pubis indurated and tender with small amount of drainage form area of head with pressure. Edema noted into the left scrotum and foreskin. Penis otherwise ap pears normal with no discharge. EXT: no cyanosis, clubbing. 1+ fay ankle edema, not tender. MSK: No joint redness or swelling. No CVAT NEURO: CN 2-12 grossly intact. Normal movement of 4 extremities. Normal speech and coordination. No tremor SKIN: No rashes or open wounds other than per . PSYCH: normal mood and affect, nl thought process Objective Last Vital Signs Temp 36.4 C L 10/15/24 08:23 Pulse 77 10/15/24 08:23 Resp 18 10/15/24 08:23 BP 112/77 10/15/24 08:23 Pulse Ox 97 10/15/24 08:23 Laboratory Results - last 24 hr 10/15/24 07:16 WBC 7.26 RBC 4.07 L Hgb 10.9 L Hct 34.0 L MCV 84 MCH 26.8 L MCHC 32.1 RDW 13.1 Plt Count 301 MPV 8.9 Sodium 138 Potassium 3.8 Chloride 103 Carbon Dioxide 27.5 Anion Gap 7.5 BUN 6 L Creatinine 0.6 L Est GFR (CKD-EPI 2020) 130.72 Glucose 111 H Calcium 8.9 Total Bilirubin 0.3 AST 21 ALT 19 Alkaline Phosphatase 103 Total Protein 7.6 Albumin 2.9 L Vancomycin Trough 15.5 PAWSS Have you Been Recently Intoxicated or Drunk Within the Last 30 days?: No Have you Ever Experienced Previous Episodes of Alcohol Withdrawal?: No Have you ever Experienced Withdrawal Seizures?: No Have you ever Experienced Delirium Tremens(DT)s?: No Have you ever undergone Alcohol Rehabilitation Treatment (i.e, inpt ot outpatient treatment programs)?: No Have you ever Experienced Blackouts?: No Have you ever Combined Alcohol with other Downers within the last 90 days?: No Have you ever Combined Alcohol with any other Substance of Abuse during the last 90 days?: No Positive Blood Alcohol level on Presentation? [PCS.BAL]: No Evidence of Increased Autonomic Activity (i.e. HR>120, tremor, sweating, agitation, nausea)?: No Result: 0 Time Spent with Patient Time Spent with Patient: 25-34 minutes Time was spent: preparing to see the patient(eg.review tests), obtaining and/or reviewing separately otained hiistory, ordering medications,tests, procedures, referring, communicating with other health ambulatory care nurse, indepentently interpreting results, counseling the patient and care coordination
[2024-10-15] MEDS: Enoxaparin 40 MG/0.4 ML SYR SC (20:27)
[2024-10-15] MEDS: Mirtazapine 15 MG TAB PO (20:27)
[2024-10-15 20:30] VITALS: BP 122/84; PULSE 60; RESP 15; TEMP 36.2; O2SAT 97
[2024-10-16] MEDS: VANCOMYCIN/WATER (PEG) 1.25 GM/250 ML BAG IVPB ×3 (00:04→15:47)
[2024-10-16 07:44] VITALS: BP 116/76; PULSE 70; TEMP 37; O2SAT 98
[2024-10-16] MEDS: Enoxaparin 40 MG/0.4 ML SYR SC ×2 (08:59→20:54)
[2024-10-16] MEDS: Normal Saline Flush 10 ML SYR IVP ×2 (09:03→20:55)
[2024-10-16] MEDS: Methadone Liquid 10 MG/ML 150 MG PO (09:05)
[2024-10-16] MEDS: Polyethylene Glycol 3350 17 GM PACKET PO (09:21)
[2024-10-16 11:31] LABS: Syphilis Serology (RPR) Negative (Negative)
[2024-10-16 12:43] LABS: HBs Antibody, Quant 22.6 mIU/mL (See Note); Hep B Surface Ab Positive (See Note); Hepatitis B Core Antibody Negative (Negative); Hepatitis B Surface Antigen Negative (Negative)
--- NOTE | 2024-10-16 12:47 | PGE_ITS ---
Date of Service Date of service: 10/16/24 Time of Service: 12:47 Assessment and Plan Assessment and plan (1) Sepsis: Status: Acute Assessment and plan: Meets criteria with elevated HR and WBC in setting of acute infection He hasn't gotten fluids, start with liter bolus On vancomycin for purlulent cellulitis with blood cx pending. 10/14/24 labs pending from this am. Called lab and apparently labs weren't drawn 2 body habitus 10/15/24 resolved 10/16/24 MRSA shows resistance to erythromycin/oxacillin/bactrim. MRSA is sensitive to vanc and zosyn. Will plan on sending home on linezolid PO. CW vanc for now (2) Cellulitis of left groin: Status: Acute Assessment and plan: Vancmycin as above. Given sepsis and severity of infeciton admission for IV abx indicated. CT does not reveal abscess to drain, continue to monitor for development. Consult surgery prn Draining some from small pocket, culture this fluid. 10/14/24 Cultures pending, no labs drawn yet. CW vanc. Consider GS consult on Wednesday if there isn't significant improvement 10/15/24 cultures show MRSA but awaiting sensitivities. Wound cultures positive but blood cultures remain negative at 24 hours Currently on vancomycin 10/16/24 as above (3) Opioid dependence: Assessment and plan: States he is on methadone, med rec says buprenorphine. We need to clarify this. (4) Anemia: Status: Chronic Assessment and plan: In setting of acute infection. Mild. Monitor. 10/16/24 stable, last reading with hg at 11 (5) DVT prophylaxis: Status: Acute Assessment and plan: enoxaparin. high dose given BMI >40. Subjective Subjective Interval history since last seen: Pt seen and examined in his room. Pt did state a significant amount of fluid drained out of wound last pm. Exam Narrative Exam Narrative: NCAT MMM EOMI RRR NO MRG CTAB NO AMU L HIP-DECREASED ERYTHEMA BUT STILL WITH INDURATION AAOX3 Objective Last Vital Signs Temp 37.0 C 10/16/24 07:44 Pulse 70 10/16/24 07:44 Resp 15 10/15/24 20:30 BP 116/76 10/16/24 07:44 Pulse Ox 98 10/16/24 07:44 PAWSS Have you Been Recently Intoxicated or Drunk Within the Last 30 days?: No Have you Ever Experienced Previous Episodes of Alcohol Withdrawal?: No Have you ever Experienced Withdrawal Seizures?: No Have you ever Experienced Delirium Tremens(DT)s?: No Have you ever undergone Alcohol Rehabilitation Treatment (i.e, inpt ot outpatient treatment programs)?: No Have you ever Experienced Blackouts?: No Have you ever Combined Alcohol with other Downers within the last 90 days?: No Have you ever Combined Alcohol with any other Substance of Abuse during the last 90 days?: No Positive Blood Alcohol level on Presentation? [PCS.BAL]: No Evidence of Increased Autonomic Activity (i.e. HR>120, tremor, sweating, agitation, nausea)?: No Result: 0 Time Spent with Patient Time Spent with Patient: 25-34 minutes Time was spent: preparing to see the patient(eg.review tests), obtaining and/or reviewing separately otained hiistory, ordering medications,tests, procedures, referring, communicating with other health child care group leader, indepentently interpreting results, counseling the patient and care coordination
[2024-10-16 13:04] LABS: HIV-1/2 Ag & Ab Screen Negative (Negative)
[2024-10-16 13:12] LABS: Hepatitis C Ab w Rflx HCV PCR Negative (Negative)
--- NOTE | 2024-10-16 13:19 | CMPROGNOTE_ITS ---
Date of service: 10/16/24 Time of Service: 13:19 Care Management Progress Note Progress Note Text Progress Note Text: Rudy continues to be closely monitored and treated for cellulites of his left groin, surgical was consulted today. CT scan is being considered. No changes have been made to his discharge plan, he is on medical furlough and [facility], CM is happy to coordinate RCT if needed, CM provided updates to Elba at the [facility]. CM will follow. Discharge Potential Discharge Needs: PCP F/U Appt Anticipated Barriers to Discharge: None Identified Patient/Family Education Needs: Review discharge instructions, discuss Ask Me Three Transportation: Other (Clarification needed, waiting for a return call from Darshana at the correctional facility) Plan: Anticipate Rudy will be discharged to the community. Patient will follow up with corrections, per patient and corrections agreement. Once returned to the correctional facility, he will follow up with facility providers and continue per his discharge plan of care. He will transport via RCT vs. private vehicle. CM will continue to follow. Social Determinants of Health Screening Will the Patient Participate in the Screening?: Unable to obtain Comments: pt from correction
--- NOTE | 2024-10-16 16:50 | PHA.REVIEW2 ---
Pharmacy Admission Review Admission Clinical Review Admission Pharmacy Review: DVT prophylaxis (Acute) Cellulitis of left groin (Acute) Sepsis (Acute) codeine Allergy (Unverified 11/04/22 13:28) Resuscitation Status Full Code Height 5 ft 11 in Weight 136.3 kg Pharmacy Admission Review Renal Dosing Renal Dosing: BUN 6 mg/dL (7-18) L 10/15/24 07:16 Creatinine 0.6 mg/dL (0.70-1.30) L 10/15/24 07:16 Medications needing adjustments: Reviewed Anticoagulation Anticoagulation: Hgb 10.9 g/dL (13.5-17.5) L 10/15/24 07:16 Hct 34.0 % (40.0-50.0) L 10/15/24 07:16 Plt Count 301 10^3/uL (130-400) 10/15/24 07:16 Creatinine 0.6 mg/dL (0.70-1.30) L 10/15/24 07:16 DVT Prophylaxis: Reviewed Medications: Enoxaparin Relevant Labs Relevant Labs: ESR 58 mm/hr (0-15) H 10/13/24 15:43 Sodium 138 mmol/L (136-145) 10/15/24 07:16 Potassium 3.8 mmol/L (3.5-5.1) 10/15/24 07:16 Chloride 103 mmol/L (98-107) 10/15/24 07:16 Magnesium 1.8 mg/dL (1.8-2.4) 10/13/24 14:50 C-Reactive Protein 12.19 mg/dL (<or=0.5) H 10/13/24 14:50 Electrolytes, C-Reactive P, ESR: Reviewed DM Control DM Control: N/A Cardiac Review BP, HR, EF%: Reviewed IV to PO Switch IV Medications: Reviewed Home Meds Home Med List reviewed: Reviewed Pharmacy Antibiotic Review Relevant Labs: VANCO TROUGH 15.5 ON CURRENT DOSE OF 1250MG Q8H. CONTINUE DOSE. Pharmacy Antibiotic Activity: 48 hour review (on vanco for MRSA in wound cx. )
[2024-10-16 19:44] VITALS: BP 132/81; PULSE 64; RESP 22; TEMP 36.3; O2SAT 97
[2024-10-16] MEDS: Acetaminophen 325 MG TAB PO (20:53)
[2024-10-16] MEDS: Mirtazapine 15 MG TAB PO (20:56)
[2024-10-17] MEDS: VANCOMYCIN/WATER (PEG) 1.25 GM/250 ML BAG 1.667 GM IVPB ×3 (01:22→17:33)
[2024-10-17 08:27] VITALS: BP 117/80; PULSE 88; RESP 18; TEMP 36.5; O2SAT 98
[2024-10-17] MEDS: Methadone Liquid 10 MG/ML 150 MG PO (08:48)
[2024-10-17] MEDS: Polyethylene Glycol 3350 17 GM PACKET PO (08:56)
[2024-10-17] MEDS: Normal Saline Flush 10 ML SYR IVP ×2 (08:58→20:07)
--- NOTE | 2024-10-17 11:31 | PDOC.CMIN ---
Date of service: 10/17/24 Time of Service: 11:31 Care Management Initial Assmt Initial Assessment Reason for Hospitalization: cellulitis Functional Status/Living Situation Town of Residence: [facility] Resides with: Other (incarcerated) Instrumental Activities of Daily Living (ADLs): Independent Advance Directives Advance Directives: Do you have an Advance Directive: N 12/08/13 12:17 AD On File at [facility]: N 12/08/13 12:17 Date Asked 10/13/24 10/13/24 15:27 AD Date Reviewed COLST On File at [facility] COLST Date Scanned Code Status Resuscitation Status Full Code Portal Pt does not currently have a portal and education provided: No Insurance Coverage/Financial Issues Insurance: Medicaid Care Team Visit Care Team Role Provider Type Onesimo Ramirez MD MD [facility] STAFF PHYSICIAN Alec Truong MD Primary Care Provider NON-[facility] STAFF PHYSICIAN Thomas Díaz MD Emergency Provider [facility] STAFF PHYSICIAN Tay Stanton Admit Provider [facility] STAFF PHYSICIAN Attending Provider Discharge Potential Discharge Needs: Other (will return to correctional facility) Anticipated Barriers to Discharge: None Identified Patient/Family Education Needs: Review discharge instructions, discuss Ask Me Three Transportation: Facility Transport Plan: Rudy will likely be transferred back to the correctional facility when medically cleared. He will follow up with the facility provider and plan of care and transport with RCT vs family. CM will follow and will continue to support discharge planning efforts. Social Determinants of Health Screening Will the Patient Participate in the Screening?: Unable to obtain Comments: pt from [facility] All Active Problems DVT prophylaxis (Acute) Anemia (Chronic) Cellulitis of left groin (Acute) Sepsis (Acute) Medical History Obesity, Class III, BMI 40-49.9 (morbid obesity) IVDU (intravenous drug user) in remission Opioid dependence Surgical History S/P appendectomy Family History Other Heart disease Substance use disorder Social History Smoking/Tobacco Use Status: Former Tobacco Use Smoking risk assessment performed?: Yes Alcohol Intake: former Substance use type: former substance user, heroin, opiates and IV drugs Housing: other Additional Social history: From [facility], incarcerated since 2022 No IVDU since 2014
--- NOTE | 2024-10-17 11:35 | CMPROGNOTE_ITS ---
Date of service: 10/17/24 Time of Service: 11:35 Care Management Progress Note Progress Note Text Progress Note Text: Rudy was sitting up in bed when CM met with him. He was pleasant in interaction and engaged well with CM. Rudy shared that he feels his cellulitis had been improving, however he lost IV access and has missed a couple of doses of IV antibiotics. At the time of the visit, Rudy was waiting for someone from the ED to attempt a venipuncture using the ultrasound. Rudy has been incarcerated for the past 2 years at [facility] in [facility]. He reported that he expects to be released very soon as his time is up and he believes he will have confirmation about housing tomorrow. Rudy is and has 3 daughters ages 7, 13 and 15. His ex- and children live in [place] so Rudy is seeking housing in that area. 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 Discharge Potential Discharge Needs: Other (return to correctional facility) Anticipated Barriers to Discharge: None Identified Patient/Family Education Needs: Review discharge instructions, discuss Ask Me Three Transportation: Private vehicle Plan: Rud[facility] when medically cleared. He will follow up with the facility providers and plan of care and transport with family vs RCT. CM will follow. Social Determinants of Health Screening Will the Patient Participate in the Screening?: Unable to obtain Comments: pt from long-term
[2024-10-17 13:17] LABS: CREATININE 0.6 mg/dL (0.70-1.30); Estimated GFR 130.72 (mL/min/1.73m2)
[2024-10-17 13:34] LABS: Vancomycin, Random 15.5 ug/mL
--- NOTE | 2024-10-17 14:57 | NUR.NOTE ---
Nursing Note: Right IV noted to have increased swelling and redness. Infusion stopped. Pharmacy called for management of possible infiltration. Warm, pack applied and limb elevated. Education provided to patient on management of IV inflitration. Provider made aware
--- NOTE | 2024-10-17 16:36 | PGE_ITS ---
Date of Service Date of service: 10/17/24 Time of Service: 16:36 Assessment and Plan Assessment and plan (1) Sepsis: Status: Acute Assessment and plan: Meets criteria with elevated HR and WBC in setting of acute infection He hasn't gotten fluids, start with liter bolus On vancomycin for purlulent cellulitis with blood cx pending. 10/14/24 labs pending from this am. Called lab and apparently labs weren't drawn /2 body habitus 10/15/24 resolved 10/16/24 MRSA shows resistance to erythromycin/oxacillin/bactrim. MRSA is sensitive to vanc and zosyn. Will plan on sending home on linezolid PO. CW vanc for now (2) Cellulitis of left groin: Status: Acute Assessment and plan: Vancmycin as above. Given sepsis and severity of infeciton admission for IV abx indicated. CT does not reveal abscess to drain, continue to monitor for development. Consult surgery prn Draining some from small pocket, culture this fluid. 10/14/24 Cultures pending, no labs drawn yet. CW vanc. Consider GS consult on Wednesday if there isn't significant improvement 10/15/24 cultures show MRSA but awaiting sensitivities. Wound cultures positive but blood cultures remain negative at 24 hours Currently on vancomycin 10/16/24 as above (3) Opioid dependence: Assessment and plan: States he is on methadone, med rec says buprenorphine. We need to clarify this. 10/17/24 Pt is on methadone 150mg po daily (4) Anemia: Status: Chronic Assessment and plan: In setting of acute infection. Mild. Monitor. 10/16/24 stable, last reading with hg at 11 (5) DVT prophylaxis: Status: Acute Assessment and plan: enoxaparin. high dose given BMI >40. Subjective Subjective Interval history since last seen: pt seen and examined in his room. No new complaints. Wound still with fairly copious drainage Exam Narrative Exam Narrative: NCAT MMM EOMI RRR NO MRG CTAB NO AMU L HIP-DECREASED ERYTHEMA BUT STILL WITH INDURATION AAOX3 Objective Last Vital Signs Temp 36.5 C 10/17/24 08:27 Pulse 88 10/17/24 08:27 Resp 18 10/17/24 08:27 BP 117/80 10/17/24 08:27 Pulse Ox 98 10/17/24 08:27 Laboratory Results - last 24 hr 10/17/24 12:25 Creatinine 0.6 L Est GFR (CKD-EPI 2020) 130.72 Random Vancomycin 15.5 PAWSS Have you Been Recently Intoxicated or Drunk Within the Last 30 days?: No Have you Ever Experienced Previous Episodes of Alcohol Withdrawal?: No Have you ever Experienced Withdrawal Seizures?: No Have you ever Experienced Delirium Tremens(DT)s?: No Have you ever undergone Alcohol Rehabilitation Treatment (i.e, inpt ot ou tpatient treatment programs)?: No Have you ever Experienced Blackouts?: No Have you ever Combined Alcohol with other Downers within the last 90 days?: No Have you ever Combined Alcohol with any other Substance of Abuse during the last 90 days?: No Positive Blood Alcohol level on Presentation? [PCS.BAL]: No Evidence of Increased Autonomic Activity (i.e. HR>120, tremor, sweating, agitation, nausea)?: No Result: 0 Time Spent with Patient Time Spent with Patient: 25-34 minutes Time was spent: preparing to see the patient(eg.review tests), obtaining and/or reviewing separately otained hiistory, ordering medications,tests, procedures, referring, communicating with other health home care and home health aides teacher, indepentently interpreting results, counseling the patient and care coordination
[2024-10-17] MEDS: Enoxaparin 40 MG/0.4 ML SYR SC (20:06)
[2024-10-17] MEDS: Mirtazapine 15 MG TAB PO (20:07)
[2024-10-18] MEDS: VANCOMYCIN/WATER (PEG) 1.25 GM/250 ML BAG IVPB ×4 (00:15→20:48)
[2024-10-18] MEDS: Normal Saline Flush 10 ML SYR IVP ×7 (00:16→20:48)
[2024-10-18 07:15] VITALS: BP 111/70; PULSE 56; RESP 16; TEMP 36.6; O2SAT 98
[2024-10-18] MEDS: Enoxaparin 40 MG/0.4 ML SYR SC ×2 (08:18→20:48)
[2024-10-18] MEDS: Methadone Liquid 10 MG/ML 150 MG PO (08:28)
[2024-10-18] MEDS: Polyethylene Glycol 3350 17 GM PACKET PO (10:19)
--- NOTE | 2024-10-18 14:21 | PGE_ITS ---
Date of Service Date of service: 10/18/24 Time of Service: 14:21 Assessment and Plan Assessment and plan (1) Sepsis: Status: Acute Assessment and plan: Meets criteria with elevated HR and WBC in setting of acute infection He hasn't gotten fluids, start with liter bolus On vancomycin for purlulent cellulitis with blood cx pending. 10/14/24 labs pending from this am. Called lab and apparently labs weren't drawn 2/ body habitus 10/15/24 resolved 10/16/24 MRSA shows resistance to erythromycin/oxacillin/bactrim. MRSA is sensitive to vanc and zosyn. Will plan on sending home on linezolid PO. CW vanc for now 10/18/24 Does appear to be improving. Possible dc in 2-4 days. (2) Cellulitis of left groin: Status: Acute Assessment and plan: Vancmycin as above. Given sepsis and severity of infeciton admission for IV abx indicated. CT does not reveal abscess to drain, continue to monitor for development. Consult surgery prn Draining some from small pocket, culture this fluid. 10/14/24 Cultures pending, no labs drawn yet. CW vanc. Consider GS consult on Wednesday if there isn't significant improvement 10/15/24 cultures show MRSA but awaiting sensitivities. Wound cultures positive but blood cultures remain negative at 24 hours Currently on vancomycin 10/16/24 as above (3) Opioid dependence: Assessment and plan: States he is on methadone, med rec says buprenorphine. We need to clarify this. 10/17/24 Pt is on methadone 150mg po daily (4) Anemia: Status: Chronic Assessment and plan: In setting of acute infection. Mild. Monitor. 10/16/24 stable, last reading with hg at 11 (5) DVT prophylaxis: Status: Acute Assessment and plan: enoxaparin. high dose given BMI >40. Subjective Subjective Interval history since last seen: Pt seen and examined in his room this afternoon. No new complaints Exam Narrative Exam Narrative: NCAT MMM EOMI RRR NO MRG CTAB NO AMU L HIP-DECREASED ERYTHEMA BUT STILL WITH INDURATION AAOX3 Objective Last Vital Signs Temp 36.6 C 10/18/24 07:15 Pulse 56 L 10/18/24 07:15 Resp 16 10/18/24 07:15 BP 111/70 10/18/24 07:15 Pulse Ox 98 10/18/24 07:15 PAWSS Have you Been Recently Intoxicated or Drunk Within the Last 30 days?: No Have you Ever Experienced Previous Episodes of Alcohol Withdrawal?: No Have you ever Experienced Withdrawal Seizures?: No Have you ever Experienced Delirium Tremens(DT)s?: No Have you ever undergone Alcohol Rehabilitation Treatment (i.e, inpt ot outpatient treatment programs)?: No Have you ever Experienced Blackouts?: No Have you ever Combined Alcohol with other Downers within the last 90 days?: No Have you ever Combined Alcohol with any other Substance of Abuse during the last 90 days?: No Positive Blood Alcohol level on Presentation? [PCS.BAL]: No Evidence of Increased Autonomic Activity (i.e. HR>120, tremor, sweating, agitation, nausea)?: No Result: 0 Time Spent with Patient Time Spent with Patient: 25-34 minutes Time was spent: preparing to see the patient(eg.review tests), obtaining and/or reviewing separately otained hiistory, ordering medications,tests, procedures, referring, communicating with other health administrator health care facility, indepentently interpreting results, counseling the patient and care coordination
--- NOTE | 2024-10-18 15:51 | CMPROGNOTE_ITS ---
Date of service: 10/18/24 Time of Service: 15:51 Care Management Progress Note Progress Note Text Progress Note Text: Rudy was sitting up in bed when CM met with him. He appeared to be in good spirits and easily engaged with CM. Rudy stated that he feels the cellulitis is improving. He is having less pain and does not fell as sick, overall. Rudy's vital signs are stable, he remains afebrile and his WBC is within normal limits. The wound culture done on admission grew MRSA and he is receiving IV Vancomycin and is on contact precautions. Rudy informed CM that he thinks he will likely be discharged in another day or 2. The provider has informed him that he needs another day of IV antibiotics then will be transitioned to an oral agent before discharge. Rudy will return to [facility] at discharge until he can secure housing. He is looking in the [place] area and hopes to hear about a possible apartment tomorrow. Discharge Potential Discharge Needs: Other (return to [facility]) Anticipated Barriers to Discharge: None Identified Patient/Family Education Needs: Review discharge instructions, discuss Ask Me Three Transportation: Facility Transport Plan: Rudy will be discharged back to [facility] when medically cleared. He will follow up with the facility providers and plan of care and transport with family vs RCT. CM will follow and continue to support discharge planning efforts. Social Determinants of Health Screening Will the Patient Participate in the Screening?: Unable to obtain Comments: pt from [facility]
[2024-10-18 19:38] VITALS: BP 110/74; PULSE 67; RESP 20; TEMP 36.7; O2SAT 96
[2024-10-18] MEDS: Mirtazapine 15 MG TAB PO (20:48)
--- NOTE | 2024-10-19 | DI.US_ITS ---
Exam(s) US SOFT TISS EXTREMITY/GROIN EXAM: US SOFT TISS EXTREMITY/GROIN CLINICAL HISTORY: draining induration left groin (MRSA+), abscess?. TECHNIQUE: Ultrasound was performed using standard protocol. COMPARISON: CT CT ABDOMEN PELVIS W from 10/13/2024 FINDINGS: Dedicated ultrasound examination of the area of clinical concern in the left groin was performed. Pr ior CT scan of 10/13/2024 was reviewed. There is diffuse soft tissue edema in the groin. There is also a focal hypoechoic area measuring 3.6 x 0.6 x 2.0 cm which may be developing abscess. There are few slightly prominent reactive lymph nodes in the groin noted. Largest of these measures 2 cm. Left testicle was scanned and appears unremarkable. No ipsilateral left hydrocele seen. IMPRESSION: There is concern for developing abscess on these images of the left groin region. Consider repeat CT scan with IV contrast DATA REPOSITORY:
[2024-10-19] MEDS: VANCOMYCIN/WATER (PEG) 1.25 GM/250 ML BAG IVPB (01:55)
[2024-10-19] MEDS: Normal Saline Flush 10 ML SYR IVP ×4 (01:57→21:29)
[2024-10-19 07:29] LABS: HCT 36.7 % (40.0-50.0); HGB 11.8 g/dL (13.5-17.5); MCH 26.8 pg (27.0-33.0); MCHC 32.2 % (32.0-36.0); MCV 83 fL (80-95); MPV 8.5 fL (8.0-11.0); Platelet Count 345 10^3/uL (130-400); RDW 12.9 % (11.8-14.1); WBC 7.83 10^3/uL (4.4-10.8)
[2024-10-19 07:47] LABS: ALT 27 U/L (16-63); AST 32 U/L (15-37); Alkaline Phosphatase 112 U/L (46-116); Anion Gap 6.4 mmol/L (3-11); BUN 12 mg/dL (7-18); Bilirubin, Total 0.2 mg/dL (0.2-1.0); CO2 26.6 mmol/L (21.0-32.0); CREATININE 0.9 mg/dL (0.70-1.30); Calcium 8.8 mg/dL (8.5-10.1); Chloride 102 mmol/L (98-107); Estimated GFR 115.65 (mL/min/1.73m2); Glucose 101 mg/dL (74-106); Potassium 3.9 mmol/L (3.5-5.1); Sodium 135 mmol/L (136-145); Total Protein 7.8 g/dL (6.4-8.2)
[2024-10-19 07:51] LABS: Vancomycin, Random 28.7 ug/mL
[2024-10-19 07:58] VITALS: BP 84/59; PULSE 67; RESP 16; TEMP 36.3; O2SAT 95
--- NOTE | 2024-10-19 09:18 | PDOC.CMPRO ---
Date of service: 10/19/24 Time of Service: 09:18 Care Management Progress Note Progress Note Text Progress Note Text: Rudy was sitting up in bed when CM met with him. He remains pleasant and cooperative. Rudy's groin wound is slowly improving. The susceptibilities of his MRSA have been finalized and the only oral agent that would be effective is Linezolid. CM contacted the correctional facility to see if they could accommodate that medication order as it is very expensive. CM learned that it is possible to order Linezolid however, because Rudy is on furlough, he is not in the [facility] system, presenting logistical issues. When the order is clarified, CM will work with the healthcare corporate account director at the residential to facilitate and coordinate Rudy's return. If that medication is not possible, Rudy may need to continue IV antibiotics for a bit longer, either at [facility] or at a different [facility] Rudy is still waiting to hear about the availability of an apartment in [place]. He explained that his mother works during the day but plans to follow up on the apartment on her break. Discharge Potential Discharge Needs: PCP F/U Appt and Other (return to corrections) Anticipated Barriers to Discharge: Medical Status Patient/Family Education Needs: Review discharge instructions, discuss Ask Me Three Transportation: Facility Transport Plan: Rudy will be discharged back to [facility] when medically cleared. He will follow up with the facility providers and plan of care and transport with family vs RCT. CM will follow and continue to support discharge planning efforts. Social Determinants of Health Screening Will the Patient Participate in the Screening?: Unable to obtain Comments: pt from [facility]
[2024-10-19] MEDS: Enoxaparin 40 MG/0.4 ML SYR SC ×2 (09:22→21:28)
[2024-10-19] MEDS: Methadone Liquid 10 MG/ML 150 MG PO (09:23)
[2024-10-19 09:30] VITALS: BP 121/77; PULSE 76
[2024-10-19] MEDS: Polyethylene Glycol 3350 17 GM PACKET PO (09:32)
--- NOTE | 2024-10-19 16:04 | W.PM.PROGNOT ---
Date of Service Date of service: 10/19/24 Time of Service: 16:04 Assessment and Plan Assessment and plan (1) Sepsis: Status: Acute Assessment and plan: Met criteria on admission with elevated HR and WBC in setting of acute infection MRSA confirmed on wound. Day 6 IV vancomycin, has stabiliized. (2) Cellulitis of left groin: Status: Acute Assessment and plan: Vancmycin as above. Clearly improved after 6 days IV abx but still significant focal induration and drainage. CT on admission did not show abscess but I am concerned one has formed. Get u/s and surgery consult. Once any abscess has drained, plan would be discharge on oral linazolid 600mg BID, 5 more days would be reasonable given slow response. (3) Opioid dependence: Assessment and plan: Pt confirmed on methadone 150mg po daily, stable on this. (4) Anemia: Status: Chronic Assessment and plan: In setting of acute infection. Mild, stable. (5) DVT prophylaxis: Status: Acute Assessment and plan: enoxaparin. high dose given BMI >40. Subjective Subjective Patient reports: tolerating a regular diet and voiding w/o difficulty; denies diarrhea, nausea, vomiting, shortness of breath or fever Interval history since last seen: 24 hr: no events Feeling okay. Groin is still firm and draining off/on. No fever, but still sweats. Taking PEG to help BMs. Exam Narrative Exam Narrative: GEN: alert and oriented, NAD RRR NO MRG CTAB normal effort L groin, minimal erythema, but still mildly tender 10+cm area of INDURATION, not draining currenlty ext: no cyanosis or edema, not tender. Objective Last Vital Signs Temp 36.3 C L 10/19/24 07:58 Pulse 76 10/19/24 09:30 Resp 16 10/19/24 07:58 BP 121/77 10/19/24 09:30 Pulse Ox 95 10/19/24 07:58 Laboratory Results - last 24 hr 10/19/24 06:45 WBC 7.83 RBC 4.40 Hgb 11.8 L Hct 36.7 L MCV 83 MCH 26.8 L MCHC 32.2 RDW 12.9 Plt Count 345 MPV 8.5 Sodium 135 L Potassium 3.9 Chloride 102 Carbon Dioxide 26.6 Anion Gap 6.4 BUN 12 Creatinine 0.9 Est GFR (CKD-EPI 2020) 115.65 Glucose 101 Calcium 8.8 Total Bilirubin 0.2 AST 32 ALT 27 Alkaline Phosphatase 112 Total Protein 7.8 Albumin 3.0 L Random Vancomycin 28.7 PAWSS Have you Been Recently Intoxicated or Drunk Within the Last 30 days?: No Have you Ever Experienced Previous Episodes of Alcohol Withdrawal?: No Have you ever Experienced Withdrawal Seizures?: No Have you ever Experienced Delirium Tremens(DT)s?: No Have you ever undergone Alcohol Rehabilitation Treatment (i.e, inpt ot outpatient treatment programs)?: No Have you ever Experienced Blackouts?: No Have you ever Combined Alcohol with other Downers within the last 90 days?: No Have you ever Combined Alcohol with any other Substance of Abuse during the last 90 days?: No Positive Blood Alcohol level on Presentation? [PCS.BAL]: No Evidence of Increased Autonomic Activity (i.e. HR>120, tremor, sweating, agitation, nausea)?: No Result: 0 Time Spent with Patient Time Spent with Patient: 35-49 minutes Time was spent: preparing to see the patient(eg.review tests), obtaining and/or reviewing separately otained hiistory, ordering medications,tests, procedures, referring, communicating with other health direct care provider, indepentently interpreting results, counseling the patient and care coordination
[2024-10-19 21:26] VITALS: BP 124/92; PULSE 70; RESP 18; TEMP 36.2; O2SAT 98
[2024-10-19] MEDS: Acetaminophen 325 MG TAB PO (21:29)
[2024-10-19] MEDS: Mirtazapine 15 MG TAB PO (21:29)
[2024-10-19] MEDS: Water,Injection,Sterile 10 ML VIAL (22:45)
[2024-10-19] MEDS: VANCOMYCIN 1,250 MG in Normal Saline 250 ML 166.667 MG IVPB (22:47)
[2024-10-20] VITALS (26 sets, daily range): BP systolic 111–132; BP diastolic 62–102; PULSE 57–66; RESP 6–20; TEMP 36.1–36.7; O2SAT 94–100; BMI 41.3
[2024-10-20] MEDS: Normal Saline Flush 10 ML SYR IVP ×4 (08:10→20:29)
--- NOTE | 2024-10-20 08:51 | SCONE_ITS ---
Date of service: 10/20/24 Time of Service: 08:51 Assessment and Plan Assessment and plan (1) Cellulitis of left groin: Status: Acute Assessment and plan: I do think there is a small abscess cavity associated with the cellulitis, and I think incision and drainage is probably the best way to help expedite the healing. Certainly, he is having a long enough trial of antibiotics that if that was going to take care of it, I think it would have happened by now. I explained the risks and benefits of the procedure, and I think Rudy has a good understanding of this. I have asked him to hold off on eating any breakfast at this point, we will arrange for incision and drainage in the operating room this afternoon. History of Present Illness History of Present Illness Chief Complaint: Left groin abscess Narrative: Rudy is 34 years old. A little over a week and a half ago he started to notice some pain and redness in the left side of his groin. This was the first time it ever happened to him. Over the course of about 48 hours it became increasingly tender, and eventually he was able to squeeze some bloody pus from this. He had a little bit of relief of the pain, but the surrounding tissue continued to become firm and more red. He came to the emergency department for evaluation. He had a white blood cell count around 15,000, the underwent a CT scan of the pelvis that demonstrated cellulitis without a drainable collection. A sample of the pus was obtained, and was positive for MRSA. He was started on vancomycin. Since he has been admitted to the hospital, he continues to have induration, but no drainage from the wound. He underwent a follow-up ultrasound yesterday that demonstrated a 3 cm abscess cavity. Review of Systems Constitutional Constitutional: Denies fever(s), Denies malaise and Denies poor appetite Eyes Eyes: Reports system reviewed and no additional complaints, except as documented ENT Ears, Nose, Mouth, and Throat: Reports system reviewed and no additional complaints, except as documented Cardiovascular Cardiovascular: Reports system reviewed and no additional complaints, except as documented Respiratory Respiratory: Denies chest congestion and Denies cough Gastrointestinal Gastrointestinal: Denies nausea and Denies vomiting Genitourinary Genitourinary: Denies hematuria, Denies difficulty urinating, Denies testicular mass and Denies testicular pain Musculoskeletal Musculoskeletal: Reports abnormal gait (Secondary to groin pain) Neurologic Neurologic: Denies abnormal speech and Reports abnormal gait (Secondary to groin pain) Psychiatric Psychiatric: Reports system reviewed and no additional complaints, except as documented Hematologic/Lymphatic Hematologic/Lymphatic: Denies easy bleeding and Denies easy bruising PFSH All Active Problems DVT prophylaxis (Acute) Anemia (Chronic) Cellulitis of left groin (Acute) Sepsis (Acute) Medical History Obesity, Class III, BMI 40-49.9 (morbid obesity) IVDU (intravenous drug user) in remission Opioid dependence Surgical History S/P appendectomy Family History Other Heart disease Substance use disorder Social History Smoking/Tobacco Use Status: Former Tobacco Use Smoking risk assessment performed?: Yes Alcohol Intake: former Substance use type: former substance user, heroin, opiates and IV drugs Housing: other Additional Social history: From [facility], incarcerated since 2022 No IVDU since 2014 Exam Skin Other: There is an area of tender erythema in the left groin. Skin is indurated. There is a small focus of fluctuant area. Penis and testicles are normal. I do not appreciate any hernias. There are some associated lymphadenopathy. Results Last Vital Signs Temp 97.2 F L 10/19/24 21:26 Pulse 70 10/19/24 21:26 Resp 18 10/19/24 21:26 BP 124/92 H 10/19/24 21:26 Pulse Ox 98 10/19/24 21:26 Labs 10/19/24 06:45 10/19/24 06:45 Imaging US - pelvic: report reviewed and image reviewed
[2024-10-20] MEDS: Enoxaparin 40 MG/0.4 ML SYR SC ×2 (09:05→20:29)
[2024-10-20] MEDS: Methadone Liquid 10 MG/ML 150 MG PO (09:06)
--- NOTE | 2024-10-20 09:38 | CMPROGNOTE_ITS ---
Date of service: 10/20/24 Time of Service: 09:39 Care Management Progress Note Progress Note Text Progress Note Text: Rudy was sitting up in bed when CM met with him. He had a surgical consult with Dr. Sesay today and the decision was made to take him to the OR for an I&D of the abscess in his groin. He was NPO at the time of the visit and surgery was scheduled for the afternoon. CM returned to see him at the end of the day. He appeared uncomfortable and was guarding his groin area, sitting awkwardly in the bed. He shared that Dr. Sesay told him things went well and that the wound was packed with gauze. He is still receiving IV antibiotics and stated he was not sure how much longer he would need to remain in the hospital. Discharge Potential Discharge Needs: PCP F/U Appt Anticipated Barriers to Discharge: None Identified Patient/Family Education Needs: Review discharge instructions, discuss Ask Me Three Transportation: Facility Transport Plan: Rudy will be discharged back to [facility] when medically cleared. He will follow up with the facility providers and plan of care and transport with family vs RCT. CM will follow and continue to support discharge planning efforts. Social Determinants of Health Screening Will the Patient Participate in the Screening?: Unable to obtain Comments: pt from [facility]
--- NOTE | 2024-10-20 12:21 | ANES.PREOP_ITS ---
General Info Date of Service Date Performed: 10/20/24 Height: 5 ft 11 in Weight: 134.5 kg Body Mass Index (BMI): 41.3 Surgical Procedure: Operation Date: 10/20/24 14:25 Proposed Procedure Side Surgeon p Left groin I + D Left Flakito Sesay MD Meds Allergies and Home Medications Allergies Allergy/AdvReac Type Severity Reaction Status Date / Time codeine Allergy Unverified 11/04/22 13:28 Home Medication ?Medication ?Instructions ?Recorded methadone 10 mg tablet 150 mg PO DAILY 10/13/24 mirtazapine 15 mg tablet 15 mg PO QHS 10/13/24 Current Visit Medications: Current Medications Generic Name Dose Route Start Last Admin Trade Name Freq PRN Reason Stop Dose Admin Acetaminophen 0 mg 10/13/24 17:48 10/19/24 21:29 Acetaminophen 325 Mg Tab PO 650 mg Q4H PRN PRN Administration Enoxaparin Sodium 40 mg 10/13/24 20:00 10/20/24 09:05 Enoxaparin 40 Mg/0.4 Ml Syr SC 40 mg BID HELGA Administration Vancomycin HCl 1,250 mg/ 250 mls @ 166.667 mls/hr 10/19/24 22:00 10/20/24 00:53 Sodium Chloride IVPB Infused Q12H HELGA Infusion IV Miscellaneous Supplies 1 each 10/16/24 16:45 Iv Access IV DIRECTED HELGA Methadone HCl 150 mg 10/15/24 08:30 10/20/24 09:06 Methadone Liquid 10 Mg/Ml PO 150 mg DAILY HELGA Administration Mirtazapine 15 mg 10/13/24 23:00 10/19/24 21:29 Mirtazapine 15 Mg Tab PO 15 mg HS HELGA Administration Polyethylene Glycol 17 gm 10/13/24 17:48 10/19/24 09:32 Polyethylene Glycol 3350 17 Gm Packet PO 17 gm DAILY PRN PRN Administration Constipation Sodium Chloride 0 ml 10/13/24 14:17 10/19/24 21:29 Normal Saline Flush 10 Ml Syr IVP 10 ml PRN PRN Administration Sodium Chloride 0 ml 10/13/24 20:00 10/19/24 21:29 Normal Saline Flush 10 Ml Syr IVP 10 ml BID HELGA Administration Sodium Chloride 0 ml 10/13/24 14:17 Normal Saline 10 Ml Vial IJ DIRECTED PRN PFSH Active Problems Active Problems: Problem Status Onset Code DVT prophylaxis Acute Z29.9 Anemia Chronic D64.9 Cellulitis of left groin Acute L03.314 Sepsis Acute A41.9 Medical History Medical History Obesity, Class III, BMI 40-49.9 (morbid obesity) IVDU (intravenous drug user) in remission Opioid dependence Surgical History Surgical History S/P appendectomy Tobacco Smoking/Tobacco Use Status: Former Tobacco Use Alcohol Alcohol Intake: former Substance Use Substance use type: former substance user, heroin, opiates and IV drugs Vital Signs and Lab Results Vital Signs Most Recent Vital Signs in EMR: Most Recent Vital Signs Temp Pulse Resp BP Pulse Ox 36.2 C L 70 18 124/92 H 98 10/19/24 21:26 10/19/24 21:26 10/19/24 21:26 10/19/24 21:26 10/19/24 21:26 Lab Results 10/19/24 06:45 10/19/24 06:45 Blood Type / Crossmatch: 2 No Data to Display Complete Blood Count: 2 White Blood Count 7.83 10^3/uL (4.4-10.8) 10/19/24 06:45 Red Blood Count 4.40 10^6/uL (4.36-5.78) 10/19/24 06:45 Hemoglobin 11.8 g/dL (13.5-17.5) L 10/19/24 06:45 Hematocrit 36.7 % (40.0-50.0) L 10/19/24 06:45 Platelet Count 345 10^3/uL (130-400) 10/19/24 06:45 Venous Blood Lactate 0.8 mmol/L (<or=2.0) 10/13/24 14:50 Complete Metabolic Panel: 2 Sodium 135 mmol/L (136-145) L 10/19/24 06:45 Potassium 3.9 mmol/L (3.5-5.1) 10/19/24 06:45 Chloride 102 mmol/L (98-107) 10/19/24 06:45 Carbon Dioxide 26.6 mmol/L (21.0-32.0) 10/19/24 06:45 BUN 12 mg/dL (7-18) 10/19/24 06:45 Creatinine 0.9 mg/dL (0.70-1.30) 10/19/24 06:45 Est GFR (CKD-EPI 2020) 115.65 (mL/min/1.73m2) 10/19/24 06:45 Magnesium 1.8 mg/dL (1.8-2.4) 10/13/24 14:50 Calcium 8.8 mg/dL (8.5-10.1) 10/19/24 06:45 Albumin 3.0 g/dL (3.4-5.0) L 10/19/24 06:45 Glucose 101 mg/dL (74-106) 10/19/24 06:45 C-Reactive Protein 12.19 mg/dL (<or=0.5) H 10/13/24 14:50 Liver Function Panel: 2 Alanine Aminotransferase (ALT/SGPT) 27 U/L (16-63) 10/19/24 06: 45 Aspartate Amino Transf (AST/SGOT) 32 U/L (15-37) 10/19/24 06:45 Coagulation Panel: 2 No Data to Display Cardiac Panel: 2 No Data to Display Arterial Blood Gas: 2 No Data to Display Venous Blood Gas: 2 No Data to Display Pancreas Panel: 2 No Data to Display Thyroid Panel: 2 No Data to Display Infectious Disease: 2 HIV (1&2) Ag and Ab, 4th Generation Negative (Negative) 14:30 Hepatitis B Surface Antigen Negative (Negative) 10/14/24 14:30 Hepatitis C Antibody Negative (Negative) 10/14/24 14:30 Syphilis Serology Negative (Negative) 10/14/24 14:30 Blood Cultures: 2 No Data to Display Toxicology Panel: 2 No Data to Display Anesthesia Assessment and Plan Anesthesia History Personal History: No History of Anesthesia Complications Family History: No Family History of Anesthesia Complications Exercise Tolerance Exercise Tolerance: Metabolic Equivalents>4 Cardiac & Pulmonary Exam Cardiac Exam: Normal S1/S2 Heart Sounds Pulmonary Exam: Clear Bilateral Breath Sounds Implantable Cardiac Device Does patient have a Pacemaker or an ICD?: No Airway Exam Known Difficult Airway: No Mallampati Class: 4 Mouth Opening: Narrow (< 3cm) Thyromental Distance: Less than 3 cm Neck Range of Motion: Full ROM Neck Circumference: Thick Teeth Condition: Generalized Poor Dentition (black spots, denies loose. ) ASA Classification ASA Score: ASA 3 Emergency Case?: No NPO Status NPO Status: NPO Clears >2 hours, Solids >8 hours Anesthesia Plan Resuscitation Status: Full Code Anesthesia Technique: General Anesthesia Airway Planned: Endotracheal Tube Monitors Used: Standard Monitors Preoperative Comments:: 34 yo male with a sensitivity to codeine for I/D of groin abscess. Currently inpt. Sig PMHx: IVDU (none since 2015. currently on methadone, 150 mg today), BMI > 40. Denies major. Approp NPO. Denies reflux.
[2024-10-20] MEDS: Lactated Ringers 1,000 ML 30 ML IV ×2 (14:00→15:48)
[2024-10-20] MEDS: Bupivacaine 0.25% Pres-Free W/EPI 30 ML VIAL (15:14)
--- NOTE | 2024-10-20 15:32 | W.PM.OP ---
Operative Note Operative Note PRE-OP DIAGNOSIS: Left groin abscess POST-OP DIAGNOSIS: same PROCEDURE: Incision and drainage of left groin abscess SURGEON: Flakito Sesay ANESTHESIA TYPE: Local By Surgeon and General:No Airway Refer to Anesthesia Record ESTIMATED BLOOD LOSS: 5 PATHOLOGY: other (Left groin abscess for Gram stain and culture) COMPLICATIONS: None Patient was transported to: PACU Patient's condition: stable Indications: Rudy andino a 34-year-old male came to the hospital left groin cellulitis. This was a result of methicillin resistant Staph aureus. He was started on vancomycin. He had persistent erythema and induration of the left groin, and a follow-up ultrasound demonstrated a 3 cm abscess. Findings: Small left groin abscess Procedure Description: I met with Rudy in the preoperative area, and we reviewed the plan for incision and drainage of the abscess in the left groin. He was brought back to the operating room, and the pubic care of the left groin was trimmed. General anesthesia was induced with the natural airway. Next, I prepped and draped the left groin. I established a generous field block using local anesthetic. Next, I made an incision over the area of most induration. This was approximately 2 cm long. I dissected down into the subcutaneous fat, and there was some drainage of purulent fluid. Specimens were obtained for Gram stain and culture. Minimal loculations were easily disrupted, and the wound was irrigated clean. 1 inch iodoform packing was gently introduced into the wound. An ABD pad was used to dress this, and this was held in place with mesh underpants. The patient was then allowed awaken from the anesthetic and transferred to the recovery unit. Date of Procedure: 10/20/24
[2024-10-20] MEDS: ACETAMINOPHEN 1,000 MG/100 ML BAG 400 MG IVPB (15:51)
[2024-10-20] MEDS: Ketorolac 15 MG/ML VIAL IVP (15:52)
[2024-10-20] MEDS: HYDROmorphone 2 MG/ML SYR IVP ×2 (16:08→16:22)
--- NOTE | 2024-10-20 16:09 | W.ANESPOSTOP ---
Postoperative Evaluation Date, Time and Location Date Performed: 10/20/24 Time Performed: 16:09 Patient Location: PACU Vital Signs Most Recent Imported Vital Signs: Most Recent Vital Signs Temp Pulse Resp BP Pulse Ox 36.6 C 62 10 L 123/77 96 10/20/24 16:01 10/20/24 15:36 10/20/24 15:36 10/20/24 15:36 10/20/24 16:01 Pain Score Most Recent Pain Score: Most Recent Pain Score Pain Level [Genital] 3 10/14/24 07:45 Pain Level 7 10/20/24 16:01 Assessment Mental Status: Awake (Alert & Oriented to Patient Baseline) Airway and Respiratory Function: Patent airway with normal (patient baseline) respiratory exam Cardiovascular Function: Hemodynamically Stable Hydration Status: Adequately Hydrated Nausea & Vomiting: No Nausea or Vomiting Pain: Pain is Moderate or Severe Postoperative Pain Management: Pain being addressed with medication and Ongoing pain, patient will be managed as an inpatient Peripheral Nerve Block: Patient did not receive a nerve block
--- NOTE | 2024-10-20 17:56 | W.PM.PROGNOT ---
Date of Service Date of service: 10/20/24 Time of Service: 17:56 Assessment and Plan Assessment and plan (1) Sepsis: Status: Acute Assessment and plan: Met criteria on admission with elevated HR and WBC in setting of acute infection MRSA confirmed on wound. Day 7 IV vancomycin, has stabiliized, see below. (2) Cellulitis of left groin: Status: Acute Assessment and plan: Vancmycin as above. Clearly improved after 6 days IV abx abscess formed and now s/p I&D He is in a good amount of pain. Will observe overnight, if stable home on linazolid with wound care recs per surgery. (3) Opioid dependence: Assessment and plan: Pt confirmed on methadone 150mg po daily, stable on this. (4) Anemia: Status: Chronic Assessment and plan: In setting of acute infection. Mild, stable. (5) DVT prophylaxis: Status: Acute Assessment and plan: enoxaparin. high dose given BMI >40. Subjective Subjective Patient reports: tolerating a regular diet and voiding w/o difficulty; denies diarrhea, nausea, vomiting, shortness of breath or fever Interval history since last seen: 24 hr: u/s showed abscess had formed s/p I&D in OR today Dr. Sesay He has pain in surgical area, but otherwise okay. Ice helps some. He was hot this morning but not now. He is hungry. no chest pain, abd pain, or cough now. Exam Narrative Exam Narrative: GEN: alert and oriented, NAD RRR NO MRG CTAB normal effort L groin, minimal erythema, tender but less indurated left groin wick in place. ext: no cyanosis. trace fay ankle edema, not tender. Objective Last Vital Signs Temp 36.7 C 10/20/24 17:17 Pulse 59 L 10/20/24 17:17 Resp 19 10/20/24 17:17 BP 118/68 10/20/24 17:17 Pulse Ox 98 10/20/24 17:17 PAWSS Have you Been Recently Intoxicated or Drunk Within the Last 30 days?: No Have you Ever Experienced Previous Episodes of Alcohol Withdrawal?: No Have you ever Experienced Withdrawal Seizures?: No Have you ever Experienced Delirium Tremens(DT)s?: No Have you ever undergone Alcohol Rehabilitation Treatment (i.e, inpt ot outpatient treatment programs)?: No Have you ever Experienced Blackouts?: No Have you ever Combined Alcohol with other Downers within the last 90 days?: No Have you ever Combined Alcohol with any other Substance of Abuse during the last 90 days?: No Positive Blood Alcohol level on Presentation? [PCS.BAL]: No Evidence of Increased Autonomic Activity (i.e. HR>120, tremor, sweating, agitation, nausea)?: No Result: 0 Time Spent with Patient Time Spent with Patient: 25-34 minutes Time was spent: preparing to see the patient(eg.review tests), obtaining and/or reviewing separately otained hiistory, ordering medications,tests, procedures, referring, communicating with other health career information specialist, indepentently interpreting results, counseling the patient and care coordination
[2024-10-20] MEDS: VANCOMYCIN 1,250 MG in Normal Saline 250 ML 166.667 MG IVPB (18:20)
[2024-10-20] MEDS: traMADol 50 MG TAB PO ×2 (18:54→23:16)
[2024-10-20] MEDS: Mirtazapine 15 MG TAB PO (20:29)
[2024-10-20] MEDS: HYDROmorphone 2 MG/ML SYR 1 MG IVP (21:40)
[2024-10-20] MEDS: Acetaminophen 325 MG TAB PO (23:17)
[2024-10-20] MEDS: Polyethylene Glycol 3350 17 GM PACKET PO (23:19)
[2024-10-21] MEDS: HYDROmorphone 2 MG/ML SYR 1 MG IVP ×3 (00:42→08:29)
[2024-10-21 05:53] LABS: Abs Immature Grans 0.03 10^3/uL (0.0-0.06); Absolute Basophil Count 0.05 10^3/uL (0.0-0.2); Absolute Eosinophil Count 0.57 10^3/uL (0.0-0.7); Absolute Lymphocyte Count 2.26 10^3/uL (1.2-3.4); Absolute Monocyte Count 0.82 10^3/uL (0.1-0.8); Absolute Neutrophil Count 3.68 10^3/uL (1.2-6.7); Basophils % 0.7 %; Eosinophils % 7.7 %; HCT 37.1 % (40.0-50.0); Immature Grans % 0.4 %; Lymphocytes % 30.5 %; MCH 27.1 pg (27.0-33.0); MCHC 32.3 % (32.0-36.0); MCV 84 fL (80-95); MPV 8.4 fL (8.0-11.0); Monocytes % 11.1 %; Neutrophils % 49.6 %; Platelet Count 325 10^3/uL (130-400); RBC 4.43 10^6/uL (4.36-5.78); RDW-SD 39.2 fL; WBC 7.41 10^3/uL (4.4-10.8)
[2024-10-21] MEDS: Normal Saline Flush 10 ML SYR IVP ×5 (06:04→23:42)
[2024-10-21] MEDS: Acetaminophen 325 MG TAB PO ×2 (06:04→20:29)
[2024-10-21] MEDS: traMADol 50 MG TAB PO (06:04)
[2024-10-21 06:07] LABS: Anion Gap 7.6 mmol/L (3-11); BUN 15 mg/dL (7-18); CO2 29.4 mmol/L (21.0-32.0); CREATININE 0.9 mg/dL (0.70-1.30); Calcium 8.7 mg/dL (8.5-10.1); Chloride 103 mmol/L (98-107); Estimated GFR 115.65 (mL/min/1.73m2); Glucose 126 mg/dL (74-106); Potassium 3.8 mmol/L (3.5-5.1); Sodium 140 mmol/L (136-145)
[2024-10-21] MEDS: VANCOMYCIN 1,250 MG in Normal Saline 250 ML 166.667 MG IVPB (06:39)
[2024-10-21 07:48] VITALS: BP 111/75; PULSE 52; RESP 16; TEMP 36.3; O2SAT 98
[2024-10-21] MEDS: Enoxaparin 40 MG/0.4 ML SYR SC ×2 (08:28→20:29)
[2024-10-21] MEDS: Methadone Liquid 10 MG/ML 150 MG PO (08:29)
--- NOTE | 2024-10-21 08:29 | W.PM.PROGNOT ---
Date of Service Date of service: 10/21/24 Time of Service: 08:29 Assessment and Plan Assessment and plan (1) Cellulitis of left groin: Status: Acute Assessment and plan: So far, the Gram stain on the abscess shows just white blood cells with no organisms. That seems appropriate given his exposure to antibiotics prior to the drainage. This should heal up fine with sequential packing changes. I would continue with iodoform gauze, packing a little less and less each day. I explained to Rudy that the wound should be changed at least once per day, and if he can do it 2 or 3 times, that would probably help promote healing a little faster. Subjective Subjective Interval history since last seen: Rudy complains of some pain at the incision site, but overall feels pretty well. He had no fevers overnight. Dressings were changed last night. Exam Skin Other: I removed all of the packing today, and carefully examined the wound. It still a little bit indurated, but there is minimal erythema, and overall, it seems less tender than yesterday. I repacked it with iodoform gauze. Objective Last Vital Signs Temp 97.3 F L 10/21/24 07:48 Pulse 52 L 10/21/24 07:48 Resp 16 10/21/24 07:48 BP 111/75 10/21/24 07:48 Pulse Ox 98 10/21/24 07:48 Laboratory Results - last 24 hr 10/21/24 05:38 WBC 7.41 RBC 4.43 Hgb 12.0 L Hct 37.1 L MCV 84 MCH 27.1 MCHC 32.3 RDW 13.0 Plt Count 325 MPV 8.4 Immature Gran % 0.4 Neutrophils % 49.6 Lymphocytes % 30.5 Monocytes % 11.1 Eosinophils % 7.7 Basophils % 0.7 Nucleated RBC % 0.0 Absolute Neutrophils 3.68 Absolute Lymphocytes 2.26 Absolute Monocytes 0.82 H Absolute Eosinophils 0.57 Absolute Basophils 0.05 Sodium 140 Potassium 3.8 Chloride 103 Carbon Dioxide 29.4 Anion Gap 7.6 BUN 15 Creatinine 0.9 Est GFR (CKD-EPI 2020) 115.65 Glucose 126 H Calcium 8.7 PAWSS Have you Been Recently Intoxicated or Drunk Within the Last 30 days?: No Have you Ever Experienced Previous Episodes of Alcohol Withdrawal?: No Have you ever Experienced Withdrawal Seizures?: No Have you ever Experienced Delirium Tremens(DT)s?: No Have you ever undergone Alcohol Rehabilitation Treatment (i.e, inpt ot outpatient treatment programs)?: No Have you ever Experienced Blackouts?: No Have you ever Combined Alcohol with other Downers within the last 90 days?: No Have you ever Combined Alcohol with any other Substance of Abuse during the last 90 days?: No Positive Blood Alcohol level on Presentation? [PCS.BAL]: No Evidence of Increased Autonomic Activity (i.e. HR>120, tremor, sweating, agitation, nausea)?: No Result: 0 Time Spent with Patient Time Spent with Patient: 25-34 minutes Time was spent: preparing to see the patient(eg.review tests), indepentently interpreting results and counseling the patient
[2024-10-21] MEDS: Polyethylene Glycol 3350 17 GM PACKET PO (09:39)
--- NOTE | 2024-10-21 11:19 | PGE_ITS ---
Date of Service Date of service: 10/21/24 Time of Service: 11:19 Assessment and Plan Assessment and plan (1) Sepsis: Status: Acute Assessment and plan: Met criteria on admission with elevated HR and WBC in setting of acute infection MRSA confirmed on wound. Day 8 IV vancomycin, has stabiliized, see below. (2) Cellulitis of left groin: Status: Acute Assessment and plan: Vancmycin as above. Will transition to oral treatment, linazolid given multiresistant MRSA. Clearly improved after 8 days IV abx abscess formed and now s/p I&D He is in a good amount of pain getting IV meds and wound draining heavily. Will transition to oral therapy and observe overnight to make sure he continues to improve before sending back to [facility]. Tramadol won't do much in patient on methadone, will use high dose oxycodone, transition off IV pain meds. Add ibuprofen. (3) Opioid dependence: Assessment and plan: Pt confirmed on methadone 150mg po daily, stable on this but is getting some additional pain treatment. (4) Anemia: Status: Chronic Assessment and plan: In setting of acute infection. Mild, stable. (5) DVT prophylaxis: Status: Acute Assessment and plan: enoxaparin. high dose given BMI >40. Subjective Subjective Patient reports: tolerating a regular diet and voiding w/o difficulty; denies nausea, vomiting, shortness of breath or fever Interval history since last seen: Events: Seen by surgery, repacked wound He feels better, but still in a good amount of pain, wound draining heavily per RN and patient. He is hesitant to go back to prison in this state. Got tramadol for pain orally, not doing much. Exam Narrative Exam Narrative: GEN: alert and oriented, NAD RRR NO MRG CTAB normal effort L groin, minimal erythema, less tender and less indurated left groin wick in place draining serosanguinous liquid on pad ext: no cyanosis. trace fay ankle edema, not tender. Objective Last Vital Signs Temp 36.3 C L 10/21/24 07:48 Pulse 52 L 10/21/24 07:48 Resp 16 10/21/24 07:48 BP 111/75 10/21/24 07:48 Pulse Ox 98 10/21/24 07:48 Laboratory Results - last 24 hr 10/21/24 05:38 WBC 7.41 RBC 4.43 Hgb 12.0 L Hct 37.1 L MCV 84 MCH 27.1 MCHC 32.3 RDW 13.0 Plt Count 325 MPV 8.4 Immature Gran % 0.4 Neutrophils % 49.6 Lymphocytes % 30.5 Monocytes % 11.1 Eosinophils % 7.7 Basophils % 0.7 Nucleated RBC % 0.0 Absolute Neutrophils 3.68 Absolute Lymphocytes 2.26 Absolute Monocytes 0.82 H Absolute Eosinophils 0.57 Absolute Basophils 0.05 Sodium 140 Potassium 3.8 Chloride 103 Carbon Dioxide 29.4 Anion Gap 7.6 BUN 15 Creatinine 0.9 Est GFR (CKD-EPI 2020) 115.65 Glucose 126 H Calcium 8.7 PAWSS Have you Been Recently Intoxicated or Drunk Within the Last 30 days?: No Have you Ever Experienced Previous Episodes of Alcohol Withdrawal?: No Have you ever Experienced Withdrawal Seizures?: No Have you ever Experienced Delirium Tremens(DT)s?: No Have you ever undergone Alcohol Rehabilitation Treatment (i.e, inpt ot outpatient treatment programs)?: No Have you ever Experienced Blackouts?: No Have you ever Combined Alcohol with other Downers within the last 90 days?: No Have you ever Combined Alcohol with any other Substance of Abuse during the last 90 days?: No Positive Blood Alcohol level on Presentation? [PCS.BAL]: No Evidence of Increased Autonomic Activity (i.e. HR>120, tremor, sweating, agitation, nausea)?: No Result: 0 Time Spent with Patient Time Spent with Patient: 25-34 minutes Time was spent: preparing to see the patient(eg.review tests), obtaining and/or reviewing separately otained hiistory, ordering medications,tests, procedures, referring, communicating with other health child care associate teacher, indepentently interpreting results, counseling the patient and care coordination
[2024-10-21] MEDS: Ibuprofen 800 MG TAB PO ×3 (12:37→23:42)
[2024-10-21] MEDS: oxyCODONE 15 MG TAB PO ×4 (12:37→23:41)
[2024-10-21] MEDS: Linezolid 600 MG TAB PO (20:30)
[2024-10-21 23:55] VITALS: BP 132/77; PULSE 64; RESP 20; TEMP 36.3; O2SAT 98
[2024-10-22] MEDS: Acetaminophen 325 MG TAB PO ×2 (04:22→16:29)
[2024-10-22] MEDS: oxyCODONE 15 MG TAB PO ×5 (04:22→23:26)
[2024-10-22 07:36] VITALS: BP 114/66; PULSE 53; RESP 18; TEMP 36.8; O2SAT 98
[2024-10-22] MEDS: Doxycycline Hyclate 100 MG CAP PO (09:29)
[2024-10-22] MEDS: Normal Saline Flush 10 ML SYR IVP ×2 (09:32→19:55)
[2024-10-22] MEDS: Methadone Liquid 10 MG/ML 150 MG PO (09:33)
--- NOTE | 2024-10-22 12:00 | RT.EKG_ITS ---
APPROVED REPORT Exam: Resting ECG Reason for Exam: multiple QT prolonging agents Patient Location: I HR:64 bpm ECG Measurements Heart Rate 64 AXIS [place] 168 P 21 QRSd 91 QRS 8 QT 419 T 14 QTc 433 Conclusion Sinus rhythm...normal P axis, V-rate 50- 99 Normal Electrocardiogram
--- NOTE | 2024-10-22 14:22 | PGE_ITS ---
Date of Service Date of service: 10/22/24 Time of Service: 14:22 Assessment and Plan Assessment and plan (1) Sepsis: Status: Acute Assessment and plan: Met criteria on admission with elevated HR and WBC in setting of acute infection MRSA confirmed on wound. s/p 8 days of IV vancomycin, considered doxy and got one dose, but decided on linezolid after c/w patient. see below. (2) Cellulitis of left groin: Status: Acute Assessment and plan: Improved after 8 days vanco, transitioned to oral linazolid given multiresistant MRSA. Abscess formed and now s/p I&D Pain improving, transitions to scheduled NSAID and acetaminophen Still needing wound care, plan to d/c to assisted 10/23 with supplies. Will need 5 more days of antibiotics (3) Opioid dependence: Assessment and plan: Pt confirmed on methadone 150mg po daily, stable on this but is getting some additional pain treatment. (4) Insomnia: Status: Acute Assessment and plan: chronic issue. Discussed options. He wants to try alternative to mirtazipine. clonidine and quetiapine worked before, can try these tonight. Qtc 433 safe to use low dose quetiapine. (5) DVT prophylaxis: Status: Acute Assessment and plan: enoxaparin. high dose given BMI >40. Subjective Subjective Patient reports: pain is less and tolerating a regular diet; denies nausea, vomiting, shortness of breath or fever Interval history since last seen: Events: Transitioned from vancomycin to linezolid, held mirtazipine due to drug interaction Did not sleep without mirtazipine He is tired. His pain is a little better but still hurts. Wounds still draining. Exam Narrative Exam Narrative: GEN: alert and oriented, NAD RRR NO MRG CTAB normal effort L groin, minimal erythema, less tender and less indurated left groin wick in place draining serosanguinous liquid on pad ext: no cyanosis. trace fay ankle edema, not tender. Objective Last Vital Signs Temp 36.8 C 10/22/24 07:36 Pulse 53 L 10/22/24 07:36 Resp 18 10/22/24 07:36 BP 114/66 10/22/24 07:36 Pulse Ox 98 10/22/24 07:36 PAWSS Have you Been Recently Intoxicated or Drunk Within the Last 30 days?: No Have you Ever Experienced Previous Episodes of Alcohol Withdrawal?: No Have you ever Experienced Withdrawal Seizures?: No Have you ever Experienced Delirium Tremens(DT)s?: No Have you ever undergone Alcohol Rehabilitation Treatment (i.e, inpt ot outpatient treatment programs)?: No Have you ever Experienced Blackouts?: No Have you ever Combined Alcohol with other Downers within the last 90 days?: No Have you ever Combined Alcohol with any other Substance of Abuse during the last 90 days?: No Positive Blood Alcohol level on Presentation? [PCS.BAL]: No Evidence of Increased Autonomic Activity (i.e. HR>120, tremor, sweating, agitation, nausea)?: No Result: 0 Time Spent with Patient Time Spent with Patient: 35-49 minutes Time was spent: preparing to see the patient(eg.review tests), obtaining and/or reviewing separately otained hiistory, ordering medications,tests, procedures, referring, communicating with other health complex care nurse practitioner, indepentently interpreting results, counseling the patient and care coordination
--- NOTE | 2024-10-22 15:36 | PDOC.CMPRO ---
Date of service: 10/22/24 Time of Service: 15:36 Care Management Progress Note Progress Note Text Progress Note Text: Rudy is medically ready for discharge. CM called the corrections facility to coordinate discharge, but no one is available to accept patients back on the weekend. The facility is aware that Rudy will be discharging tomorrow. Social Determinants of Health Screening Will the Patient Participate in the Screening?: Unable to obtain Comments: pt from group home
[2024-10-22] MEDS: Enoxaparin 40 MG/0.4 ML SYR SC (19:55)
[2024-10-22] MEDS: Linezolid 600 MG TAB PO (19:56)
[2024-10-22] MEDS: Naproxen 500 MG TAB PO (19:56)
[2024-10-22] MEDS: QUEtiapine 50 MG TAB PO (19:57)
[2024-10-22] MEDS: cloNIDine 0.1 MG TAB PO (19:57)
[2024-10-22 20:05] VITALS: BP 137/77; PULSE 69; RESP 18; TEMP 36.6; O2SAT 100
[2024-10-23] MEDS: oxyCODONE 15 MG TAB PO ×3 (05:10→12:54)
[2024-10-23 08:10] VITALS: BP 128/84; PULSE 56; RESP 16; TEMP 36.5; O2SAT 97
[2024-10-23] MEDS: Naproxen 500 MG TAB PO (08:49)
[2024-10-23] MEDS: Linezolid 600 MG TAB PO (08:49)
[2024-10-23] MEDS: Enoxaparin 40 MG/0.4 ML SYR SC (08:50)
[2024-10-23] MEDS: Methadone Liquid 10 MG/ML 150 MG PO (08:50)
[2024-10-23] MEDS: Normal Saline Flush 10 ML SYR IVP (08:51)
--- NOTE | 2024-10-23 11:07 | PDOC.CMDIS ---
Date of service: 10/23/24 Time of Service: 11:07 LACE Index Scoring Tool Questions: Length of Stay (in days): 7 - 13 Was the patient admitted via the E.D.?: Yes E.D. Visits: 1 Answers: Total Score: 9 Risk of Readmission: Low Risk Care Management Discharge Plan Reason for Hospitalization: cellulitis Discharge Plan: Rudy will be discharged from [facility] and return to [facility]. He will follow up with the facility providers and plan of care and transport with corrections staff. Patient/Family Education Needs: Review of discharge instructions, limitations, follow up plan and discuss Ask Me [facility] Health Related Social Needs: No Data to Display
[2024-10-23] MEDS: Polyethylene Glycol 3350 17 GM PACKET PO (12:53)
[2024-10-23] MEDS: Acetaminophen 325 MG TAB PO (12:53)
--- NOTE | 2024-10-23 14:16 | DSE_ITS ---
Date of service: 10/23/24 Time of Service: 14:16 DS: Diagnosis Discharge Diagnosis (1) Sepsis: Status: Acute (2) Cellulitis of left groin: Status: Acute (3) Opioid dependence: (4) Insomnia: Status: Acute (5) DVT prophylaxis: Status: Acute Discharge Plan Disposition Patient Disposition: [facility] Condition: Stable Discharge Details Reason For Visit: cellulitis Admit Date/Time: 10/13/24 17:48 Admit Provider: Tay Stanton Attending Provider: Tay Stanton Primary Care Provider: Alec Truong T[facility]all Hospital Course Hospital Course: 34 yo M with opioid use disorder, remote h/o IVDU, [facility] days of progressive pain, redness, and swelling in left groin. He initially met sepsis criteria and was treated with fluids and IV vancomycin. Initial CT did not show abscess and the lesion was draining superficially. Wound culture confirmed MRSA that was also resistant to SMX/TMP and erythromycin. His symptoms improved but induration remained. On 10/19 ultrasound was done and confirmed that an abscess had formed. On 10/20 he was taken to the OR for incision and drainage with Dr. Sesay. He was observed after his procedure due to ongoing pain and drainage, which did improve. He was transitioned over to linezolid on 10/21. linezolid was not compatible with his mirtazipine. He also was interested in changing this medication due to weight gain. He was previously on clonidine and quetiapine low dose at HS. These were resumed and he slept well on these. EKG showed a normal QTc. Wound care was reviewed. His wound should be repacked daily and dressing changed daily and as needed if it gets saturated. Home Meds and New Rx's Prescriptions: New clonidine HCl 0.1 mg Tablet 0.1 mg PO HS Qty: 30 0RF polyethylene glycol 3350 17 gram Powder In Packet 17 g PO DAILY PRN PRN (Reason: Constipation) Qty: 1 0RF linezolid 600 mg Tablet 600 mg PO BID 4 Days Qty: 8 0RF naproxen 500 mg Tablet 500 mg PO BID Qty: 20 0RF quetiapine 50 mg Tablet 50 mg PO HS Qty: 30 0RF acetaminophen 500 mg tablet 1,000 mg PO Q6H Qty: 40 0RF Continued methadone 10 mg tablet 150 mg PO DAILY Rx Instructions: Verified dose with DANNY in [facility] [place] spoke with Addie [phone] last dose in clinic 10/13/24 Discontinued mirtazapine 15 mg tablet 15 mg PO QHS Discharge Instructions Instructions: Abscess Incision and Drainage (DC) Additional Instructions: Change the packing daily for the rest of the week. The wound should close from the bottom up. Activity:: Activity as Tolerated Equipment/Supplies:: No Equipment Needed Diet:: As Tolerated Discharge Orders Discharge Orders: Discharge Order (Routine); Ordered 10/23/24 Ordered By: Tay Stanton DS: Summary Time Spent with Patient providing and/or coordinating discharge services: Greater than 30 minutes Status at Discharge Functional status at discharge: independent ambulation Overall status at discharge: patient is progressing back to baseline Mental Status: mental status grossly normal Speech and Movement: speech and movement normal Mood: congruent mood Affect: normal affect Quality:SDOH Health Related Social Needs: No Data to Display Exam Narrative Exam Narrative: GEN: alert and oriented, NAD RRR NO MRG Lungs: CTAB normal effort L groin, minimal erythema, less tender and less indurated left groin wick in place draining serosanguinous liquid on pad ext: no cyanosis. trace fay ankle edema, not tender. Psych Mental Status: mental status grossly normal Speech and Movement: speech and movement normal Mood: congruent mood Affect: normal affect DS: Data Vitals/I&O Vitals and I&O: Vital Signs Temperature 36.5 C 10/23/24 08:10 Temperature Source Temporal Artery Scan 10/23/24 08:10 Pulse 56 L 10/23/24 08:10 Pulse Rhythm Regular 10/13/24 18:14 Pulse 59 L 10/20/24 16:31 Respiratory Rate 16 10/23/24 08:10 Respiratory Effort Normal 10/13/24 18:14 Respiratory Depth Normal 10/13/24 18:14 Respiratory Pattern Normal 10/13/24 18:14 Blood Pressure 128/84 10/23/24 08:10 Blood Pressure Mean 98 10/23/24 08:10 Pulse Oximetry 97 10/23/24 08:10 Respiratory End-tidal CO2 47 10/20/24 16:31 Oxygen Delivery Method Room Air 10/23/24 08:10 Oxygen Flow Rate 0 10/23/24 08:10 Pain Level 6 10/23/24 12:54 Comment RN notified 10/21/24 07:48 Intake & Output 10/22/24 10/23/24 10/23/24 23:59 11:59 23:59 Intake Total Balance Intake: IV Other: Comment independent with voiding pt voiding independently- no issues reported Data Completed and Pending Labs on day of discharge: Preliminary micro results at discharge 10/20/24 15:10 Groin - Left Surgical Culture - Preliminary Staph aureus, MRSA 10/20/24 15:10 Groin - Left Anaerobic Culture - Preliminary PFSH All Active Problems (Updated 10/22/24 @ 14:35 by Tay Stanton) Insomnia (Acute) DVT prophylaxis (Acute) Anemia (Chronic) Cellulitis of left groin (Acute) Sepsis (Acute) Medical History Obesity, Class III, BMI 40-49.9 (morbid obesity) IVDU (intravenous drug user) in remission Opioid dependence Surgical History S/P appendectomy Family History Other Heart disease Substance use disorder Social History Smoking/Tobacco Use Status: Former Tobacco Use Smoking risk assessment performed?: Yes Alcohol Intake: former Substance use type: former substance user, heroin, opiates and IV drugs Housing: other Additional Social history: From [facility], incarcerated since 2022 No IVDU since 2014 Time Spent with Patient Time Spent with Patient: <45 minutes Time was spent: preparing to see the patient(eg.review tests), obtaining and/or reviewing separately otained hiistory, ordering medications,tests, procedures, referring, communicating with other health manager urgent care, indepentently interpreting results, counseling the patient and care coordination
== END 2024-10-23 15:35 | DRG 854 ==
LOC: ER 15:27 → MS 18:05
PROVIDERS: Hospitalist; Surgery; Admitting Provider Family Medicine; Emergency Provider Emergency Medicine; PCP Family Medicine; Responsible Provider Family Medicine; Visit Provider Family Medicine
PROC: 0Y960ZZ Drainage of Left Inguinal Region, Open Approach (ICD-10-PCS; CPT 46040; principal; 2024-10-20 14:15)
DX: A41.9 Sepsis, unspecified organism (principal); F11.20 Opioid dependence, uncomplicated; L03.314 Cellulitis of groin; Z16.11 Resistance to penicillins; Z16.29 Resistance to other single specified antibiotic; Z68.41 Body mass index [BMI] 40.0-44.9, adult; D64.9 Anemia, unspecified; G47.00 Insomnia, unspecified; B95.62 Methicillin resistant Staphylococcus aureus infection as the cause of diseases classified elsewhere; E66.813 Obesity, class 3
CPT/HCPCS: 10060; 00123; 36415; 76882; 80048; 80053; 84145; 85027; 85652; 86704; 86706; 86803; 87040; 87077; 87340; 87389; 96365; 99285; J1650; 74177; 80202; 81003; 82565; 83605; 83735; 85025; 86140; 86592; 87070; 87075; 87186; 87205; 93005; 93010; 99222; 99232; 99239; J0131; J1171; J1885; J2003; J2250; J2704; J3370; J3372; J3490